=== PATIENT | male | born 1945 | race African-American/Black ===

== ENCOUNTER 2020-08-07 18:49 | Inpatient (IN) | payer MEDICARE ==
[2020-08-07 19:25] LABS: #Eosinphils 0.3 10x3/uL (0.0-0.5); #Monocytes 0.6 10x3/uL (0.0-1.1); #Neutrophils 7.3 10x3/uL (1.5-8.4); %Basophils 0.4 % (0.0-2.0); %Lymphocytes 8.8 % (18.0-47.0); %Neutrophils 79.6 % (40.0-75.0); Hemoglobin 13.4 g/dL (13.5-17.5); Mean Corpuscular HGB CONC 32.1 g/dL (32.0-36.0); Mean Corpuscular Hemoglobin 28.1 pg (27.0-33.0); Mean Corpuscular Volume 87.6 fl (81.2-95.1); Platelet Count 200 10x3/uL (150-450); Red Blood Cell (RBC) Count 4.77 10x6/uL (4.32-5.72); White Blood Cell (WBC) Count 9.1 10x3/uL (3.5-10.5)
[2020-08-07 19:25] LABS: Actual Bicarbonate (HCO3v) 28 mEq/L (22-28); Base Excess 1.2 mEq/L (-2.0 to +3.0); Calcium, Ionized (venous) 1.16 mmol/L (1.16-1.32); Chloride (VBG) 101 mmol/L (98-106); Hemoglobin (Hb) 13.7 g/dL (12.6-17.4); Potassium (VBG) 4.47 mmol/L (3.70-5.30); Puncture Site Other Site; Sodium 137.8 mmol/L (133-146); pH (venous) 7.36 (7.32-7.43)
[2020-08-07] MEDS ORDERED: Labetalol HCl 100 MG/20 ML VIAL ONE (19:25)
[2020-08-07 19:33] LABS: ALT (SGPT) 22 U/L (8-55); AST (SGOT) 27 U/L (5-34); Albumin 4.3 g/dL (3.4-4.8); Alkaline Phosphatase 104 U/L (40-110); Anion Gap 19 mmol/L (10-20); BUN (Urea Nitrogen) 33 mg/dL (8.4-25.7); Bilirubin, Total 0.2 mg/dL (0.2-1.2); Calc. Creatinine Clearance 0 mL/min (70-130); Calcium 9.7 mg/dL (7.8-10.44); Carbon Dioxide 23 mmol/L (23-31); Chloride 101 mmol/L (98-107); Globulin 3.7 g/dL (2.4-3.5); Glucose 330 mg/dL (83-110); Lipase 72 U/L (8-78); Potassium 4.9 mmol/L (3.5-5.1); Sodium 138 mmol/L (136-145)
[2020-08-07 20:03] LABS: Platelet Morphology Comment Appears Adequate
[2020-08-07] MEDS ORDERED: niCARdipine 25 MG/10 ML VIAL ONE (21:21)
[2020-08-07] MEDS ORDERED: Senokot S 8.6-50 MG TAB PO PRN (22:03)
[2020-08-07] MEDS ORDERED: niCARdipine 25 MG in Sodium Chloride 0.9% 250 ML 250 ML IVPB SCH (22:15)
[2020-08-07] MEDS ORDERED: Furosemide 100 MG/10 ML VIAL SLOW IVP SCH (22:30)
[2020-08-07] MEDS ORDERED: methylPREDNISolone Sod Succ 40 MG VIAL IVP SCH (22:30)
[2020-08-07] MEDS ORDERED: methylPREDNISolone Acetate 40 mg/ml Vial ONE (22:39)
[2020-08-07] MEDS ORDERED: Furosemide 40 MG/4 ML VIAL ONE (22:39)
[2020-08-07] MEDS ORDERED: Metoprolol Tartrate 5 MG/5 ML VIAL ONE (22:40)
[2020-08-07] MEDS ORDERED: Nitroglycerin 2% Ointment 1 INCH/1 GM Packet ONE (22:40)
[2020-08-07 22:42] LABS: Troponin I 0.029 ng/mL (< 0.028)
[2020-08-07] MEDS ORDERED: methylPREDNISolone Sod Succ 40 MG VIAL ONE (22:42)
[2020-08-07] MEDS ORDERED: Lantus 1000 UNITS/10 ML VIAL SC SCH (22:45)
[2020-08-07] MEDS ORDERED: Lantus 1000 UNITS/10 ML VIAL ONE ×2 (23:01→23:02)
[2020-08-08] MEDS: Nitroglycerin 2% Ointment 1 INCH/1 GM Packet TOP SCH ×2 (00:09→06:08)
[2020-08-08] MEDS: Metoprolol Tartrate 5 MG/5 ML VIAL IVP SCH ×3 (00:30→06:42)
[2020-08-08 04:03] LABS: #Monocytes 0.2 10x3/uL (0.0-1.1); #Neutrophils 10.2 10x3/uL (1.5-8.4); %Basophils 0.3 % (0.0-2.0); %Eosinophils 0.1 % (0.0-6.0); %Lymphocytes 3.8 % (18.0-47.0); %Monocytes 1.7 % (0.0-10.0); %Neutrophils 93.1 % (40.0-75.0); Mean Corpuscular HGB CONC 32.3 g/dL (32.0-36.0); Mean Corpuscular Hemoglobin 28.4 pg (27.0-33.0); Mean Platelet Volume 11.2 fl (7.4-10.4); Platelet Count 225 10x3/uL (150-450); RBC Distribution Width 14.8 % (11.5-14.5); Red Blood Cell (RBC) Count 4.58 10x6/uL (4.32-5.72); White Blood Cell (WBC) Count 10.9 10x3/uL (3.5-10.5)
[2020-08-08 04:22] LABS: Anion Gap 15 mmol/L (10-20); BUN (Urea Nitrogen) 32 mg/dL (8.4-25.7); Calc. Creatinine Clearance 0 mL/min (70-130); Calcium 9.8 mg/dL (7.8-10.44); Carbon Dioxide 26 mmol/L (23-31); Chloride 102 mmol/L (98-107); Glucose 214 mg/dL (83-110); Potassium 4.6 mmol/L (3.5-5.1); Sodium 138 mmol/L (136-145)
[2020-08-08] MEDS ORDERED: Nitroglycerin 2% Ointment 1 INCH/1 GM Packet ONE (05:47)
[2020-08-08] MEDS ORDERED: Metoprolol Tartrate 5 MG/5 ML VIAL ONE (05:48)
[2020-08-08] MEDS ORDERED: Budesonide 0.5 MG/2 ML NEB ONE (06:52)
[2020-08-08] MEDS: Arformoterol 15 MCG/2 ML NEB NEB SCH (06:54)
[2020-08-08] MEDS: Budesonide 0.5 MG/2 ML NEB NEB SCH (06:55)
[2020-08-08 08:04] VITALS: BMI 30.8
[2020-08-08] MEDS ORDERED: Metoprolol Tartrate 25 MG TAB PO SCH (09:00)
[2020-08-08] MEDS ORDERED: hydrALAZINE 25 MG TAB PO SCH (09:00)
[2020-08-08] MEDS: methylPREDNISolone Sod Succ 40 MG VIAL IVP SCH ×2 (09:02→21:43)
[2020-08-08] MEDS: Aspirin 81 mg Enteric Coated Tablet PO SCH (09:03)
[2020-08-08] MEDS: TICAGRELOR 90 MG TABLET PO SCH ×2 (09:03→21:46)
[2020-08-08] MEDS: hydrALAZINE 25 MG TAB PO SCH ×4 (09:03→21:44)
[2020-08-08] MEDS: Enoxaparin Sodium 40 MG/0.4 ML SYRINGE SC SCH (09:03)
[2020-08-08] MEDS: Doxycycline 100 MG CAP PO SCH ×2 (09:08→21:43)
[2020-08-08] MEDS ORDERED: Dextrose 50% Abboject 50 ML SYRINGE SLOW IVP PRN (16:06)
[2020-08-08] MEDS ORDERED: Dextrose 5% in Water 1,000 ML IV PRN (16:06)
[2020-08-08 16:42] LABS: SARS-CoV-2 PCR by NAA Not Detected (NotDetected)
[2020-08-08] MEDS: HumaLOG 300 UNITS/3 ML VIAL SC PRN ×2 (17:32→21:46)
[2020-08-08] MEDS: Montelukast Sodium 10 mg Tablet PO SCH (21:43)
[2020-08-08] MEDS: Atorvastatin Calcium 10 MG TAB PO SCH (21:44)
[2020-08-08] MEDS: Metoprolol Tartrate 50 MG TAB PO SCH (21:44)
[2020-08-08] MEDS: Lantus 1000 UNITS/10 ML VIAL SC SCH (21:45)
[2020-08-09] MEDS: Budesonide 0.5 MG/2 ML NEB NEB SCH ×3 (02:04→20:27)
[2020-08-09] MEDS: Arformoterol 15 MCG/2 ML NEB NEB SCH ×3 (02:04→20:23)
[2020-08-09] MEDS: HumaLOG 300 UNITS/3 ML VIAL SC PRN ×4 (05:21→20:36)
[2020-08-09] MEDS: Metoprolol Tartrate 50 MG TAB PO SCH ×2 (06:01→08:05)
[2020-08-09 06:11] LABS: #Monocytes 0.3 10x3/uL (0.0-1.1); #Neutrophils 16.3 10x3/uL (1.5-8.4); %Basophils 0.2 % (0.0-2.0); %Lymphocytes 3.2 % (18.0-47.0); %Monocytes 1.6 % (0.0-10.0); %Neutrophils 94.1 % (40.0-75.0); Hemoglobin 12.7 g/dL (13.5-17.5); Mean Corpuscular HGB CONC 32.8 g/dL (32.0-36.0); Mean Corpuscular Hemoglobin 28.6 pg (27.0-33.0); Mean Corpuscular Volume 87.2 fl (81.2-95.1); Mean Platelet Volume 11.4 fl (7.4-10.4); Platelet Count 240 10x3/uL (150-450); RBC Distribution Width 14.9 % (11.5-14.5); Red Blood Cell (RBC) Count 4.44 10x6/uL (4.32-5.72); White Blood Cell (WBC) Count 17.3 10x3/uL (3.5-10.5)
[2020-08-09 06:16] LABS: Anion Gap 14 mmol/L (10-20); BUN (Urea Nitrogen) 51 mg/dL (8.4-25.7); Calc. Creatinine Clearance 43 mL/min (70-130); Calcium 9.7 mg/dL (7.8-10.44); Carbon Dioxide 28 mmol/L (23-31); Chloride 103 mmol/L (98-107); Glucose 230 mg/dL (83-110); Magnesium 2.4 mg/dL (1.6-2.6); Potassium 4.6 mmol/L (3.5-5.1); Sodium 140 mmol/L (136-145)
[2020-08-09] MEDS: TICAGRELOR 90 MG TABLET PO SCH ×2 (08:05→20:36)
[2020-08-09] MEDS: Enoxaparin Sodium 40 MG/0.4 ML SYRINGE SC SCH (08:05)
[2020-08-09] MEDS: Aspirin 81 mg Enteric Coated Tablet PO SCH (08:05)
[2020-08-09] MEDS: hydrALAZINE 25 MG TAB PO SCH ×4 (08:05→20:32)
[2020-08-09] MEDS: Montelukast Sodium 10 mg Tablet PO SCH (08:05)
[2020-08-09] MEDS: methylPREDNISolone Sod Succ 40 MG VIAL IVP SCH (08:06)
[2020-08-09] MEDS ORDERED: Lantus 1000 UNITS/10 ML VIAL SC SCH (09:00)
[2020-08-09] MEDS ORDERED: methylPREDNISolone Sod Succ 40 MG VIAL IVP SCH (09:00)
[2020-08-09] MEDS ORDERED: Bumetanide 1 MG TAB PO SCH (09:00)
[2020-08-09] MEDS: Doxycycline 100 MG CAP PO SCH ×2 (09:40→20:31)
[2020-08-09] MEDS: Lantus 1000 UNITS/10 ML VIAL SC SCH (20:30)
[2020-08-09] MEDS: Atorvastatin Calcium 10 MG TAB PO SCH (20:35)
[2020-08-10] MEDS: HumaLOG 300 UNITS/3 ML VIAL SC PRN ×3 (00:13→21:49)
[2020-08-10 07:11] LABS: #Basophils 0.1 10x3/uL (0.0-0.2); #Monocytes 1.1 10x3/uL (0.0-1.1); #Neutrophils 11.9 10x3/uL (1.5-8.4); %Basophils 0.3 % (0.0-2.0); %Eosinophils 0.2 % (0.0-6.0); %Lymphocytes 7.3 % (18.0-47.0); %Monocytes 7.7 % (0.0-10.0); %Neutrophils 83.2 % (40.0-75.0); Hemoglobin 13.3 g/dL (13.5-17.5); Mean Corpuscular HGB CONC 32.4 g/dL (32.0-36.0); Mean Corpuscular Hemoglobin 28.5 pg (27.0-33.0); Mean Corpuscular Volume 87.8 fl (81.2-95.1); Mean Platelet Volume 11.1 fl (7.4-10.4); Platelet Count 232 10x3/uL (150-450); RBC Distribution Width 14.6 % (11.5-14.5); Red Blood Cell (RBC) Count 4.67 10x6/uL (4.32-5.72); White Blood Cell (WBC) Count 14.4 10x3/uL (3.5-10.5)
[2020-08-10 07:32] LABS: Anion Gap 15 mmol/L (10-20); BUN (Urea Nitrogen) 55 mg/dL (8.4-25.7); Calc. Creatinine Clearance 47 mL/min (70-130); Calcium 9.4 mg/dL (7.8-10.44); Carbon Dioxide 26 mmol/L (23-31); Chloride 102 mmol/L (98-107); Glucose 88 mg/dL (83-110); Potassium 3.9 mmol/L (3.5-5.1); Sodium 139 mmol/L (136-145)
[2020-08-10] MEDS: Budesonide 0.5 MG/2 ML NEB NEB SCH ×2 (07:41→19:10)
[2020-08-10] MEDS: Arformoterol 15 MCG/2 ML NEB NEB SCH ×2 (07:41→19:10)
[2020-08-10] MEDS ORDERED: Bumetanide 1 MG TAB PO SCH (09:00)
[2020-08-10] MEDS: Doxycycline 100 MG CAP PO SCH ×2 (09:02→21:49)
[2020-08-10] MEDS: Aspirin 81 mg Enteric Coated Tablet PO SCH (09:02)
[2020-08-10] MEDS: Metoprolol Tartrate 50 MG TAB PO SCH ×2 (09:02→21:52)
[2020-08-10] MEDS: predniSONE 20 MG TAB PO SCH (09:03)
[2020-08-10] MEDS: TICAGRELOR 90 MG TABLET PO SCH ×2 (09:03→21:49)
[2020-08-10] MEDS: hydrALAZINE 25 MG TAB PO SCH ×3 (09:03→21:51)
[2020-08-10] MEDS: Lantus 1000 UNITS/10 ML VIAL SC SCH ×3 (09:04→21:50)
[2020-08-10] MEDS: Enoxaparin Sodium 40 MG/0.4 ML SYRINGE SC SCH (09:04)
[2020-08-10] MEDS ORDERED: diphenhydrAMINE 25 MG CAP PO PRN (10:35)
[2020-08-10] MEDS ORDERED: Metoprolol Tartrate 25 MG TAB PO SCH (14:45)
[2020-08-10] MEDS: Bumetanide 1 MG TAB PO SCH (16:51)
[2020-08-10] MEDS: Atorvastatin Calcium 10 MG TAB PO SCH (21:49)
[2020-08-10] MEDS: Montelukast Sodium 10 mg Tablet PO SCH (21:52)
[2020-08-11] MEDS: Budesonide 0.5 MG/2 ML NEB NEB SCH ×2 (07:24→19:13)
[2020-08-11] MEDS: Arformoterol 15 MCG/2 ML NEB NEB SCH ×2 (07:35→19:13)
[2020-08-11] MEDS ORDERED: Amlodipine 5 MG TAB PO SCH (09:00)
[2020-08-11] MEDS: Aspirin 81 mg Enteric Coated Tablet PO SCH (10:08)
[2020-08-11] MEDS: Enoxaparin Sodium 40 MG/0.4 ML SYRINGE SC SCH (10:08)
[2020-08-11] MEDS: Bumetanide 1 MG TAB PO SCH ×2 (10:08→17:25)
[2020-08-11] MEDS: predniSONE 20 MG TAB PO SCH (10:08)
[2020-08-11] MEDS: Metoprolol Tartrate 50 MG TAB PO SCH (10:09)
[2020-08-11] MEDS: TICAGRELOR 90 MG TABLET PO SCH (10:09)
[2020-08-11] MEDS: hydrALAZINE 25 MG TAB PO SCH ×2 (10:09→14:37)
[2020-08-11] MEDS: Lantus 1000 UNITS/10 ML VIAL SC SCH (10:11)
[2020-08-11] MEDS: HumaLOG 300 UNITS/3 ML VIAL SC PRN ×3 (10:43→17:25)
[2020-08-11] MEDS: Doxycycline 100 MG CAP PO SCH (10:43)
[2020-08-11 17:18] VITALS: BP 153/84; TEMP 98.2
== END 2020-08-11 19:12 | disposition home or self-care (01) | DRG 304 ==
LOC: CSHERS 18:49 → CSHERHOLD 22:02 → CSHTELE 08-08 06:38
PROVIDERS: ADMIT Emergency Medicine; ATTEND Internal Medicine
DX: I16.0 Hypertensive urgency (principal); J96.21 Acute and chronic respiratory failure with hypoxia; I50.31 Acute diastolic (congestive) heart failure; J44.1 Chronic obstructive pulmonary disease with (acute) exacerbation; I13.0 Hypertensive heart and chronic kidney disease with heart failure and stage 1 through stage 4 chronic kidney disease, or unspecified chronic kidney disease; Z20.822 Contact with and (suspected) exposure to COVID-19; Z99.81 Dependence on supplemental oxygen; I25.10 Atherosclerotic heart disease of native coronary artery without angina pectoris; G47.33 Obstructive sleep apnea (adult) (pediatric); E11.22 Type 2 diabetes mellitus with diabetic chronic kidney disease; N18.32 Chronic kidney disease, stage 3b; Z95.5 Presence of coronary angioplasty implant and graft; Z90.49 Acquired absence of other specified parts of digestive tract; Z87.891 Personal history of nicotine dependence; Z79.82 Long term (current) use of aspirin; Z79.899 Other long term (current) drug therapy; E11.65 Type 2 diabetes mellitus with hyperglycemia; T38.0X5A Adverse effect of glucocorticoids and synthetic analogues, initial encounter
CPT/HCPCS: 36415; 36416; 71045; 80048; 80053; 82805; 83690; 83735; 83880; 84484; 85025; 87635; 93005; 93010; 94640; 94660; 94760; 96365; 96375; J1650; J1815; J1940; J2920; J7512; J7620; J7626; U0003; U0005

== ENCOUNTER 2021-01-16 17:32 | Emergency (ER) | payer MEDICARE ==
[2021-01-16 18:19] LABS: #Basophils 0.1 10x3/uL (0.0-0.2); #Eosinphils 0.3 10x3/uL (0.0-0.5); #Monocytes 0.5 10x3/uL (0.0-1.1); #Neutrophils 6.9 10x3/uL (1.5-8.4); %Basophils 0.6 % (0.0-2.0); %Eosinophils 2.9 % (0.0-6.0); %Monocytes 5.9 % (0.0-10.0); %Neutrophils 77.7 % (40.0-75.0); Hemoglobin 12.9 g/dL (13.5-17.5); Mean Corpuscular HGB CONC 31.5 g/dL (32.0-36.0); Mean Corpuscular Hemoglobin 27.8 pg (27.0-33.0); Mean Corpuscular Volume 88.1 fl (81.2-95.1); Mean Platelet Volume 11.1 fl (7.4-10.4); Platelet Count 174 10x3/uL (150-450); RBC Distribution Width 14.3 % (11.5-14.5); Red Blood Cell (RBC) Count 4.64 10x6/uL (4.32-5.72); White Blood Cell (WBC) Count 8.9 10x3/uL (3.5-10.5)
[2021-01-16 18:36] LABS: ALT (SGPT) 13 U/L (8-55); AST (SGOT) 17 U/L (5-34); Alkaline Phosphatase 80 U/L (40-110); Anion Gap 15 mmol/L (10-20); BUN (Urea Nitrogen) 33 mg/dL (8.4-25.7); Bilirubin, Total 0.5 mg/dL (0.2-1.2); Calc. Creatinine Clearance 0 mL/min (70-130); Carbon Dioxide 25 mmol/L (23-31); Chloride 105 mmol/L (98-107); Globulin 3.1 g/dL (2.4-3.5); Glucose 106 mg/dL (83-110); Potassium 3.7 mmol/L (3.5-5.1); Protein, Total 7.1 g/dL (5.8-8.1); Sodium 141 mmol/L (136-145)
[2021-01-16] MEDS ORDERED: Labetalol HCl 100 MG/20 ML VIAL ONE (18:40)
== END 2021-01-16 20:40 | disposition home or self-care (01) ==
LOC: CSHERS 17:32
DX: I11.0 Hypertensive heart disease with heart failure (principal); I50.9 Heart failure, unspecified; E11.9 Type 2 diabetes mellitus without complications; J44.9 Chronic obstructive pulmonary disease, unspecified; I25.2 Old myocardial infarction; I25.10 Atherosclerotic heart disease of native coronary artery without angina pectoris; Z87.891 Personal history of nicotine dependence
CPT/HCPCS: 36415; 71045; 80053; 84484; 85025; 93005; 93010; 96374

== ENCOUNTER 2021-01-19 16:59 | Inpatient (IN) | payer MEDICARE ==
[2021-01-19 17:39] LABS: #Basophils 0.1 10x3/uL (0.0-0.2); #Eosinphils 0.3 10x3/uL (0.0-0.5); #Monocytes 0.6 10x3/uL (0.0-1.1); #Neutrophils 7.3 10x3/uL (1.5-8.4); %Basophils 0.5 % (0.0-2.0); %Eosinophils 3.2 % (0.0-6.0); %Lymphocytes 12.8 % (18.0-47.0); %Monocytes 6.3 % (0.0-10.0); %Neutrophils 76.5 % (40.0-75.0); Hemoglobin 13.1 g/dL (13.5-17.5); Mean Corpuscular Hemoglobin 28.1 pg (27.0-33.0); Mean Corpuscular Volume 87.8 fl (81.2-95.1); Mean Platelet Volume 12.1 fl (7.4-10.4); Platelet Count 198 10x3/uL (150-450); RBC Distribution Width 14.5 % (11.5-14.5); Red Blood Cell (RBC) Count 4.67 10x6/uL (4.32-5.72); White Blood Cell (WBC) Count 9.5 10x3/uL (3.5-10.5)
[2021-01-19] MEDS ORDERED: Nitroglycerin 2% Ointment 1 INCH/1 GM Packet ONE (17:42)
[2021-01-19] MEDS ORDERED: Furosemide 40 MG/4 ML VIAL ONE (17:42)
[2021-01-19 17:51] LABS: ALT (SGPT) 13 U/L (8-55); AST (SGOT) 20 U/L (5-34); Albumin 3.9 g/dL (3.4-4.8); Alkaline Phosphatase 86 U/L (40-110); Anion Gap 15 mmol/L (10-20); BUN (Urea Nitrogen) 36 mg/dL (8.4-25.7); Bilirubin, Total 0.4 mg/dL (0.2-1.2); Calc. Creatinine Clearance 0 mL/min (70-130); Calcium 9.1 mg/dL (7.8-10.44); Carbon Dioxide 22 mmol/L (23-31); Chloride 106 mmol/L (98-107); Glucose 129 mg/dL (83-110); Potassium 3.9 mmol/L (3.5-5.1); Protein, Total 6.9 g/dL (5.8-8.1); Sodium 139 mmol/L (136-145)
[2021-01-19] MEDS ORDERED: methylPREDNISolone Sod Succ/PF 125 MG/2 ML VIAL ONE (18:14)
[2021-01-19] MEDS ORDERED: Aspirin 325 MG TAB ONE (18:15)
[2021-01-19] MEDS ORDERED: Magnesium 2 GM/50 ML BAG (IN WATER) ONE (18:15)
[2021-01-19] MEDS ORDERED: Ventolin HFA Inhaler 60 PUFF INHALER ONE (18:36)
[2021-01-19] MEDS ORDERED: Nitroglycerin 50 MG/250 ML BOT 250 ML ONE (20:13)
[2021-01-19 20:24] LABS: SARS-CoV-2 NAA Rapid Test Not Detected (NotDetected)
[2021-01-19] MEDS ORDERED: niCARdipine 20MG In NaCl 20 MG/200 ML BAG IVPB SCH (21:00)
[2021-01-19] MEDS ORDERED: Metoprolol Tartrate 5 MG/5 ML VIAL IVP PRN (21:08)
[2021-01-19 21:50] LABS: Magnesium 2.5 mg/dL (1.6-2.6)
[2021-01-19 21:57] LABS: Troponin I 0.028 ng/mL (< 0.028)
[2021-01-19] MEDS ORDERED: Furosemide 100 MG/10 ML VIAL SLOW IVP SCH (22:00)
[2021-01-19] MEDS: Nitroglycerin 2% Ointment 1 INCH/1 GM Packet TOP SCH (23:08)
[2021-01-20 01:21] LABS: Troponin I 0.018 ng/mL (< 0.028)
[2021-01-20 05:28] LABS: Anion Gap 17 mmol/L (10-20); BUN (Urea Nitrogen) 38 mg/dL (8.4-25.7); Calc. Creatinine Clearance 51 mL/min (70-130); Calcium 9.2 mg/dL (7.8-10.44); Carbon Dioxide 24 mmol/L (23-31); Cardiac Risk 3.7 (Less than 4.5); Chloride 105 mmol/L (98-107); Cholesterol 156 mg/dl (< 200 Desired); Glucose 110 mg/dL (83-110); HDL Cholesterol 42 mg/dL (>60 Neg Risk); LDL Cholesterol, Calculated 104 mg/dL; Potassium 3.9 mmol/L (3.5-5.1); Sodium 142 mmol/L (136-145); Triglycerides 51 mg/dL (Less than 150)
[2021-01-20 05:38] LABS: #Monocytes 0.1 10x3/uL (0.0-1.1); #Neutrophils 8.5 10x3/uL (1.5-8.4); %Basophils 0.2 % (0.0-2.0); %Lymphocytes 5.1 % (18.0-47.0); %Neutrophils 92.9 % (40.0-75.0); Hemoglobin 12.9 g/dL (13.5-17.5); Mean Corpuscular HGB CONC 32.7 g/dL (32.0-36.0); Mean Corpuscular Volume 85.7 fl (81.2-95.1); Mean Platelet Volume 11.7 fl (7.4-10.4); Platelet Count 208 10x3/uL (150-450); RBC Distribution Width 14.5 % (11.5-14.5); White Blood Cell (WBC) Count 9.1 10x3/uL (3.5-10.5)
[2021-01-20] MEDS ORDERED: Furosemide 100 MG/10 ML VIAL SLOW IVP SCH (06:00)
[2021-01-20] MEDS: Nitroglycerin 2% Ointment 1 INCH/1 GM Packet TOP SCH ×3 (06:05→21:18)
[2021-01-20] MEDS: Budesonide 0.5 MG/2 ML NEB NEB SCH ×2 (06:20→19:10)
[2021-01-20] MEDS: Arformoterol 15 MCG/2 ML NEB NEB SCH ×2 (06:20→19:10)
[2021-01-20] MEDS ORDERED: Nitroglycerin 50 MG/250 ML BOT 250 ML IVPB SCH (06:45)
[2021-01-20] MEDS: Enoxaparin Sodium 40 MG/0.4 ML SYRINGE SC SCH (08:28)
[2021-01-20] MEDS: Pantoprazole 40 MG VIAL IVP SCH (08:28)
[2021-01-20] MEDS: Lantus 1000 UNITS/10 ML VIAL SC SCH (08:35)
[2021-01-20] MEDS ORDERED: Aspirin 81 mg Enteric Coated Tablet PO SCH (09:00)
[2021-01-20] MEDS ORDERED: Amlodipine 10 MG TAB PO SCH (11:00)
[2021-01-20] MEDS: hydrALAZINE 25 MG TAB PO SCH ×2 (14:53→21:18)
[2021-01-20] MEDS: Carvedilol 6.25 MG TAB PO SCH (17:47)
[2021-01-20] MEDS ORDERED: Metoprolol Tartrate 50 MG TAB PO SCH (21:00)
[2021-01-21] MEDS: Arformoterol 15 MCG/2 ML NEB NEB SCH ×2 (06:35→18:59)
[2021-01-21] MEDS: Budesonide 0.5 MG/2 ML NEB NEB SCH ×2 (06:45→18:59)
[2021-01-21] MEDS: Nitroglycerin 2% Ointment 1 INCH/1 GM Packet TOP SCH ×3 (06:46→22:31)
[2021-01-21] MEDS ORDERED: FLU VACC QS2021-22(65YR UP)/PF 240 MCG/0.7 ML SYRINGE IM ONE (09:00)
[2021-01-21] MEDS: hydrALAZINE 25 MG TAB PO SCH ×3 (09:30→22:31)
[2021-01-21] MEDS: Carvedilol 6.25 MG TAB PO SCH ×2 (09:30→17:22)
[2021-01-21] MEDS: Aspirin 81 mg Enteric Coated Tablet PO SCH (09:30)
[2021-01-21] MEDS: Enoxaparin Sodium 40 MG/0.4 ML SYRINGE SC SCH (09:31)
[2021-01-21] MEDS: Pantoprazole 40 MG VIAL IVP SCH (09:31)
[2021-01-21] MEDS: Amlodipine 10 MG TAB PO SCH (09:31)
[2021-01-21] MEDS: Lantus 1000 UNITS/10 ML VIAL SC SCH (09:37)
[2021-01-21 10:34] LABS: #Basophils 0.1 10x3/uL (0.0-0.2); #Eosinphils 0.1 10x3/uL (0.0-0.5); #Monocytes 0.6 10x3/uL (0.0-1.1); #Neutrophils 7.2 10x3/uL (1.5-8.4); %Basophils 0.6 % (0.0-2.0); %Lymphocytes 10.6 % (18.0-47.0); %Monocytes 6.3 % (0.0-10.0); %Neutrophils 80.8 % (40.0-75.0); Hemoglobin 13.1 g/dL (13.5-17.5); Mean Corpuscular HGB CONC 31.6 g/dL (32.0-36.0); Mean Corpuscular Hemoglobin 28.1 pg (27.0-33.0); Mean Corpuscular Volume 88.9 fl (81.2-95.1); Mean Platelet Volume 11.9 fl (7.4-10.4); Platelet Count 211 10x3/uL (150-450); RBC Distribution Width 14.4 % (11.5-14.5); Red Blood Cell (RBC) Count 4.67 10x6/uL (4.32-5.72); White Blood Cell (WBC) Count 8.9 10x3/uL (3.5-10.5)
[2021-01-21 10:49] LABS: Anion Gap 12 mmol/L (10-20); BUN (Urea Nitrogen) 41 mg/dL (8.4-25.7); Calc. Creatinine Clearance 45 mL/min (70-130); Calcium 8.4 mg/dL (7.8-10.44); Carbon Dioxide 28 mmol/L (23-31); Chloride 101 mmol/L (98-107); Glucose 265 mg/dL (83-110); Potassium 3.9 mmol/L (3.5-5.1); Sodium 137 mmol/L (136-145)
[2021-01-21] MEDS ORDERED: Milk Of Magnesia 30 ML UDCUP PO SCH (20:30)
[2021-01-21] MEDS ORDERED: Fleet Enema 133 ML BOT PR SCH (20:30)
[2021-01-22] MEDS: Nitroglycerin 2% Ointment 1 INCH/1 GM Packet TOP SCH ×3 (06:16→21:17)
[2021-01-22] MEDS: Arformoterol 15 MCG/2 ML NEB NEB SCH ×2 (06:35→18:35)
[2021-01-22] MEDS: Budesonide 0.5 MG/2 ML NEB NEB SCH ×2 (06:45→18:45)
[2021-01-22] MEDS: Amlodipine 10 MG TAB PO SCH (08:49)
[2021-01-22] MEDS: Carvedilol 6.25 MG TAB PO SCH ×2 (08:49→16:32)
[2021-01-22] MEDS: Aspirin 81 mg Enteric Coated Tablet PO SCH (08:49)
[2021-01-22] MEDS: Docusate 100 MG CAP PO SCH ×2 (08:49→21:15)
[2021-01-22] MEDS: Enoxaparin Sodium 40 MG/0.4 ML SYRINGE SC SCH (08:49)
[2021-01-22] MEDS: hydrALAZINE 25 MG TAB PO SCH ×3 (08:49→21:15)
[2021-01-22] MEDS: Lantus 1000 UNITS/10 ML VIAL SC SCH (08:50)
[2021-01-22 09:52] LABS: Anion Gap 12 mmol/L (10-20); BUN (Urea Nitrogen) 39 mg/dL (8.4-25.7); Calc. Creatinine Clearance 49 mL/min (70-130); Calcium 8.6 mg/dL (7.8-10.44); Carbon Dioxide 27 mmol/L (23-31); Chloride 103 mmol/L (98-107); Glucose 173 mg/dL (83-110); Potassium 3.9 mmol/L (3.5-5.1); Sodium 138 mmol/L (136-145)
[2021-01-22 12:31] LABS: Base Excess (BEa) 3.4 mEq/L (-2.0 to +3.0); CO2 Tension 42.1 mmHg (35.0-45.0); Calcium, Ionized (arterial) 1.15 mmol/L (1.12-1.30); Carboxyhemoglobin (COHb) 0.6 gm% (0.0-3.0); Hemoglobin (Hb) 13.5 g/dL (14.0-18.0); Potassium - ABG Lab 3.7 mmol/L (3.70-5.30); Puncture Site RRA; pH, Arterial 7.44 (7.35-7.45)
[2021-01-22 12:35] LABS: ALV-art Gradient 593.375 mmHg (0-20)
[2021-01-22] MEDS ORDERED: Nitroglycerin 0.4 MG TAB (25 Tab Bottle) SL PRN (13:29)
[2021-01-22 14:14] LABS: Cardiac Risk 5.1 (Less than 4.5)
[2021-01-22 15:29] LABS: CKMB 3.6 ng/mL (0-6.6)
[2021-01-22] MEDS ORDERED: Acetaminophen 325 MG TAB PO SCH (21:15)
[2021-01-23] MEDS: Nitroglycerin 2% Ointment 1 INCH/1 GM Packet TOP SCH (06:02)
[2021-01-23] MEDS: Arformoterol 15 MCG/2 ML NEB NEB SCH ×2 (06:30→19:16)
[2021-01-23] MEDS: Budesonide 0.5 MG/2 ML NEB NEB SCH ×2 (06:40→19:10)
[2021-01-23 08:38] LABS: Magnesium 2.1 mg/dL (1.6-2.6); Phosphorus 2.6 mg/dL (2.3-4.7)
[2021-01-23] MEDS ORDERED: Nitroglycerin 0.4 MG TAB (25 Tab Bottle) SL PRN ×2 (08:44→09:42)
[2021-01-23] MEDS: Carvedilol 6.25 MG TAB PO SCH (08:50)
[2021-01-23] MEDS: Amlodipine 10 MG TAB PO SCH (08:50)
[2021-01-23] MEDS: hydrALAZINE 25 MG TAB PO SCH ×3 (08:51→20:27)
[2021-01-23] MEDS: Aspirin 81 mg Enteric Coated Tablet PO SCH (08:52)
[2021-01-23] MEDS: Docusate 100 MG CAP PO SCH ×2 (08:53→20:27)
[2021-01-23] MEDS: Enoxaparin Sodium 40 MG/0.4 ML SYRINGE SC SCH (08:57)
[2021-01-23] MEDS: Lantus 1000 UNITS/10 ML VIAL SC SCH (08:58)
[2021-01-23] MEDS ORDERED: Pantoprazole 40 MG VIAL IVP SCH (09:45)
[2021-01-23] MEDS ORDERED: Carvedilol 6.25 MG TAB PO SCH (09:45)
[2021-01-23] MEDS ORDERED: Sodium Chloride 0.9% (PF) 10 ML VIAL FS PRN (09:45)
[2021-01-23 09:54] LABS: Anion Gap 13 mmol/L (10-20); BUN (Urea Nitrogen) 27 mg/dL (8.4-25.7); Calc. Creatinine Clearance 57 mL/min (70-130); Calcium 8.8 mg/dL (7.8-10.44); Carbon Dioxide 26 mmol/L (23-31); Chloride 103 mmol/L (98-107); Glucose 129 mg/dL (83-110); Potassium 3.7 mmol/L (3.5-5.1); Sodium 138 mmol/L (136-145)
[2021-01-23] MEDS ORDERED: Senokot S 8.6-50 MG TAB PO PRN (11:22)
[2021-01-23] MEDS: Lidocaine 5% Patch TD SCH (11:22)
[2021-01-23] MEDS ORDERED: Bumetanide 1 MG TAB PO SCH (11:45)
[2021-01-23] MEDS ORDERED: Piperacillin/Tazobactam 3.375 GM in Sodium Chloride 0.9% 100 ML IVPB SCH ×2 (15:30→17:45)
[2021-01-23] MEDS: Carvedilol 12.5 MG TAB PO SCH (18:07)
[2021-01-23] MEDS: Mometasone/Formoterol 60 PUFF AER INH SCH (20:20)
[2021-01-23] MEDS: Atorvastatin Calcium 10 MG TAB PO SCH (20:27)
[2021-01-23] MEDS: Brimonidine Tartrate 0.2% Ophth Soln 5 ml Bottle EA EYE SCH (20:28)
[2021-01-23] MEDS: Latanoprost 0.005% Ophth Soln 2.5 ml Bottle EA EYE SCH (20:28)
[2021-01-23] MEDS: diphenhydrAMINE 25 MG CAP PO PRN (21:11)
[2021-01-23] MEDS: Piperacillin/Tazobactam 3.375 GM in Sodium Chloride 0.9% 100 ML IVPB SCH (21:11)
[2021-01-23] MEDS: Transdermal Patch Removal TOP SCH (21:11)
[2021-01-24] MEDS: Piperacillin/Tazobactam 3.375 GM in Sodium Chloride 0.9% 100 ML IVPB SCH ×3 (05:23→21:01)
[2021-01-24] MEDS: Arformoterol 15 MCG/2 ML NEB NEB SCH ×2 (06:30→19:30)
[2021-01-24] MEDS: Budesonide 0.5 MG/2 ML NEB NEB SCH ×2 (06:40→20:06)
[2021-01-24] MEDS: Mometasone/Formoterol 60 PUFF AER INH SCH ×2 (08:05→19:40)
[2021-01-24] MEDS ORDERED: Bumetanide 1 MG TAB PO SCH (09:00)
[2021-01-24] MEDS: Lidocaine 5% Patch TD SCH (09:14)
[2021-01-24] MEDS: Allopurinol 100 MG TAB PO SCH (09:16)
[2021-01-24] MEDS: hydrALAZINE 25 MG TAB PO SCH ×3 (09:16→20:49)
[2021-01-24] MEDS: Amlodipine 10 MG TAB PO SCH (09:16)
[2021-01-24] MEDS: Docusate 100 MG CAP PO SCH ×2 (09:17→20:49)
[2021-01-24] MEDS: Pantoprazole 40 MG VIAL IVP SCH (09:17)
[2021-01-24] MEDS: Aspirin 81 mg Enteric Coated Tablet PO SCH (09:17)
[2021-01-24] MEDS: Enoxaparin Sodium 40 MG/0.4 ML SYRINGE SC SCH (09:18)
[2021-01-24] MEDS: Carvedilol 12.5 MG TAB PO SCH ×2 (09:18→16:31)
[2021-01-24] MEDS: Amitriptyline HCl 10 MG TAB PO SCH (09:18)
[2021-01-24] MEDS: Lantus 1000 UNITS/10 ML VIAL SC SCH (09:24)
[2021-01-24] MEDS: Brimonidine Tartrate 0.2% Ophth Soln 5 ml Bottle EA EYE SCH ×2 (09:25→20:54)
[2021-01-24] MEDS ORDERED: methylPREDNISolone Sod Succ/PF 125 MG/2 ML VIAL IVP SCH (12:00)
[2021-01-24] MEDS: Acetaminophen 500 MG TAB PO SCH ×4 (13:29→20:55)
[2021-01-24] MEDS: Atorvastatin Calcium 10 MG TAB PO SCH (20:49)
[2021-01-24] MEDS: diphenhydrAMINE 25 MG CAP PO PRN (20:49)
[2021-01-24] MEDS: Latanoprost 0.005% Ophth Soln 2.5 ml Bottle EA EYE SCH (20:55)
[2021-01-24] MEDS: Transdermal Patch Removal TOP SCH (20:59)
[2021-01-25] MEDS ORDERED: Dextrose 50% Abboject 50 ML SYRINGE IVP PRN (00:30)
[2021-01-25] MEDS ORDERED: Dextrose 5% in Water 1,000 ML IV PRN (00:30)
[2021-01-25] MEDS: HumaLOG 300 UNITS/3 ML VIAL SC PRN ×4 (00:38→17:33)
[2021-01-25] MEDS: Bumetanide 1 MG/4 ML VIAL IVP SCH ×2 (05:18→17:32)
[2021-01-25] MEDS: methylPREDNISolone Sod Succ 40 MG VIAL IVP SCH ×3 (05:18→22:01)
[2021-01-25] MEDS: Piperacillin/Tazobactam 3.375 GM in Sodium Chloride 0.9% 100 ML IVPB SCH ×3 (05:18→22:01)
[2021-01-25] MEDS: Acetaminophen 500 MG TAB PO SCH ×4 (05:23→22:58)
[2021-01-25] MEDS: Polyethylene Glycol 3350 17 GM Packet PO PRN (05:42)
[2021-01-25 06:01] LABS: #Monocytes 0.2 10x3/uL (0.0-1.1); #Neutrophils 8.2 10x3/uL (1.5-8.4); %Basophils 0.1 % (0.0-2.0); %Lymphocytes 5.3 % (18.0-47.0); %Monocytes 1.9 % (0.0-10.0); %Neutrophils 91.9 % (40.0-75.0); Hemoglobin 13.3 g/dL (13.5-17.5); Mean Corpuscular Volume 87.6 fl (81.2-95.1); Mean Platelet Volume 11.7 fl (7.4-10.4); Platelet Count 212 10x3/uL (150-450); RBC Distribution Width 13.9 % (11.5-14.5); Red Blood Cell (RBC) Count 4.75 10x6/uL (4.32-5.72); White Blood Cell (WBC) Count 8.9 10x3/uL (3.5-10.5)
[2021-01-25] MEDS: Mometasone/Formoterol 60 PUFF AER INH SCH ×2 (06:10→19:35)
[2021-01-25] MEDS: Budesonide 0.5 MG/2 ML NEB NEB SCH ×2 (06:10→19:15)
[2021-01-25] MEDS: Arformoterol 15 MCG/2 ML NEB NEB SCH ×2 (06:10→19:15)
[2021-01-25 06:37] LABS: ALT (SGPT) 13 U/L (8-55); AST (SGOT) 15 U/L (5-34); Albumin 3.7 g/dL (3.4-4.8); Alkaline Phosphatase 84 U/L (40-110); Anion Gap 16 mmol/L (10-20); BUN (Urea Nitrogen) 41 mg/dL (8.4-25.7); Bilirubin, Total 0.7 mg/dL (0.2-1.2); CRP (Inflammatory) 9.55 mg/dL (= or < 0.5); Calc. Creatinine Clearance 36 mL/min (70-130); Calcium 8.8 mg/dL (7.8-10.44); Carbon Dioxide 24 mmol/L (23-31); Chloride 103 mmol/L (98-107); Glucose 224 mg/dL (83-110); Potassium 4.2 mmol/L (3.5-5.1); Protein, Total 6.7 g/dL (5.8-8.1); Sodium 139 mmol/L (136-145)
[2021-01-25] MEDS: Carvedilol 12.5 MG TAB PO SCH ×2 (08:38→17:29)
[2021-01-25] MEDS: Amlodipine 10 MG TAB PO SCH (08:38)
[2021-01-25] MEDS: Aspirin 81 mg Enteric Coated Tablet PO SCH (08:39)
[2021-01-25] MEDS: hydrALAZINE 25 MG TAB PO SCH ×3 (08:39→20:28)
[2021-01-25] MEDS: Pantoprazole 40 MG VIAL IVP SCH (08:39)
[2021-01-25] MEDS: Allopurinol 100 MG TAB PO SCH (08:39)
[2021-01-25] MEDS: Docusate 100 MG CAP PO SCH ×2 (08:39→20:28)
[2021-01-25] MEDS: Enoxaparin Sodium 40 MG/0.4 ML SYRINGE SC SCH (08:39)
[2021-01-25] MEDS: Lidocaine 5% Patch TD SCH (08:39)
[2021-01-25] MEDS: Lantus 1000 UNITS/10 ML VIAL SC SCH ×2 (08:41→20:32)
[2021-01-25] MEDS: Amitriptyline HCl 10 MG TAB PO SCH (08:45)
[2021-01-25] MEDS: Brimonidine Tartrate 0.2% Ophth Soln 5 ml Bottle EA EYE SCH ×2 (08:45→20:30)
[2021-01-25] MEDS ORDERED: Doxycycline 100 MG in Syringe 0 ML IVPB SCH (09:00)
[2021-01-25] MEDS ORDERED: Doxycycline Hyclate 100 MG VIAL ONE (13:19)
[2021-01-25] MEDS: Atorvastatin Calcium 10 MG TAB PO SCH (20:28)
[2021-01-25] MEDS: Latanoprost 0.005% Ophth Soln 2.5 ml Bottle EA EYE SCH (20:30)
[2021-01-25] MEDS: Transdermal Patch Removal TOP SCH (22:02)
[2021-01-26] MEDS: HumaLOG 300 UNITS/3 ML VIAL SC PRN ×5 (00:40→21:41)
[2021-01-26 04:46] LABS: #Monocytes 0.5 10x3/uL (0.0-1.1); #Neutrophils 13.1 10x3/uL (1.5-8.4); %Basophils 0.1 % (0.0-2.0); %Lymphocytes 2.6 % (18.0-47.0); %Monocytes 3.6 % (0.0-10.0); %Neutrophils 93.1 % (40.0-75.0); Hemoglobin 12.4 g/dL (13.5-17.5); Mean Corpuscular HGB CONC 31.8 g/dL (32.0-36.0); Mean Corpuscular Hemoglobin 27.9 pg (27.0-33.0); Mean Corpuscular Volume 87.8 fl (81.2-95.1); Platelet Count 208 10x3/uL (150-450); Red Blood Cell (RBC) Count 4.44 10x6/uL (4.32-5.72)
[2021-01-26 05:05] LABS: Anion Gap 16 mmol/L (10-20); BUN (Urea Nitrogen) 48 mg/dL (8.4-25.7); Calc. Creatinine Clearance 35 mL/min (70-130); Calcium 8.6 mg/dL (7.8-10.44); Carbon Dioxide 25 mmol/L (23-31); Chloride 103 mmol/L (98-107); Glucose 183 mg/dL (83-110); Magnesium 2.1 mg/dL (1.6-2.6); Potassium 4.5 mmol/L (3.5-5.1); Sodium 139 mmol/L (136-145)
[2021-01-26] MEDS: methylPREDNISolone Sod Succ 40 MG VIAL IVP SCH ×3 (05:11→21:42)
[2021-01-26] MEDS: Acetaminophen 500 MG TAB PO SCH ×2 (05:11→11:13)
[2021-01-26] MEDS: Piperacillin/Tazobactam 3.375 GM in Sodium Chloride 0.9% 100 ML IVPB SCH ×3 (05:12→21:32)
[2021-01-26] MEDS: Bumetanide 1 MG/4 ML VIAL IVP SCH (05:12)
[2021-01-26] MEDS: Mometasone/Formoterol 60 PUFF AER INH SCH ×2 (07:10→19:25)
[2021-01-26] MEDS: Arformoterol 15 MCG/2 ML NEB NEB SCH ×2 (07:10→19:00)
[2021-01-26] MEDS: Budesonide 0.5 MG/2 ML NEB NEB SCH ×2 (07:10→19:00)
[2021-01-26] MEDS: Amitriptyline HCl 10 MG TAB PO SCH (09:00)
[2021-01-26] MEDS: Aspirin 81 mg Enteric Coated Tablet PO SCH (09:00)
[2021-01-26] MEDS: Docusate 100 MG CAP PO SCH ×2 (09:00→20:53)
[2021-01-26] MEDS: Allopurinol 100 MG TAB PO SCH (09:00)
[2021-01-26] MEDS: hydrALAZINE 25 MG TAB PO SCH ×3 (09:00→20:52)
[2021-01-26] MEDS: Pantoprazole 40 MG VIAL IVP SCH (09:01)
[2021-01-26] MEDS: Carvedilol 12.5 MG TAB PO SCH ×2 (09:01→16:33)
[2021-01-26] MEDS: Enoxaparin Sodium 30 MG/0.3 ML SYRINGE SC SCH (09:01)
[2021-01-26] MEDS: Amlodipine 10 MG TAB PO SCH (09:01)
[2021-01-26] MEDS: Lantus 1000 UNITS/10 ML VIAL SC SCH ×2 (09:02→21:33)
[2021-01-26] MEDS: Lidocaine 5% Patch TD SCH (09:05)
[2021-01-26] MEDS: Brimonidine Tartrate 0.2% Ophth Soln 5 ml Bottle EA EYE SCH ×2 (09:07→20:54)
[2021-01-26 14:26] LABS: SARS-CoV-2 PCR by NAA Not Detected (NotDetected)
[2021-01-26] MEDS: Latanoprost 0.005% Ophth Soln 2.5 ml Bottle EA EYE SCH (20:52)
[2021-01-26] MEDS: diphenhydrAMINE 25 MG CAP PO PRN (20:52)
[2021-01-26] MEDS: Atorvastatin Calcium 10 MG TAB PO SCH (20:53)
[2021-01-26] MEDS: Transdermal Patch Removal TOP SCH (20:55)
[2021-01-26] MEDS: Polyethylene Glycol 3350 17 GM Packet PO PRN (21:32)
[2021-01-27 04:28] LABS: #Monocytes 0.2 10x3/uL (0.0-1.1); #Neutrophils 11.1 10x3/uL (1.5-8.4); %Basophils 0.1 % (0.0-2.0); %Lymphocytes 2.8 % (18.0-47.0); %Monocytes 1.7 % (0.0-10.0); %Neutrophils 94.7 % (40.0-75.0); Mean Corpuscular HGB CONC 31.9 g/dL (32.0-36.0); Mean Corpuscular Volume 87.5 fl (81.2-95.1); Mean Platelet Volume 12.3 fl (7.4-10.4); Platelet Count 226 10x3/uL (150-450); RBC Distribution Width 13.8 % (11.5-14.5); Red Blood Cell (RBC) Count 4.65 10x6/uL (4.32-5.72); White Blood Cell (WBC) Count 11.8 10x3/uL (3.5-10.5)
[2021-01-27 04:52] LABS: ALT (SGPT) 14 U/L (8-55); AST (SGOT) 12 U/L (5-34); Albumin 3.4 g/dL (3.4-4.8); Alkaline Phosphatase 65 U/L (40-110); Anion Gap 14 mmol/L (10-20); BUN (Urea Nitrogen) 45 mg/dL (8.4-25.7); Bilirubin, Total 0.5 mg/dL (0.2-1.2); Calc. Creatinine Clearance 44 mL/min (70-130); Calcium 8.4 mg/dL (7.8-10.44); Carbon Dioxide 23 mmol/L (23-31); Chloride 105 mmol/L (98-107); Globulin 2.8 g/dL (2.4-3.5); Glucose 152 mg/dL (83-110); Potassium 4.4 mmol/L (3.5-5.1); Protein, Total 6.2 g/dL (5.8-8.1); Sodium 138 mmol/L (136-145)
[2021-01-27] MEDS: methylPREDNISolone Sod Succ 40 MG VIAL IVP SCH ×3 (05:26→21:21)
[2021-01-27] MEDS: Piperacillin/Tazobactam 3.375 GM in Sodium Chloride 0.9% 100 ML IVPB SCH ×3 (05:26→21:28)
[2021-01-27] MEDS: HumaLOG 300 UNITS/3 ML VIAL SC PRN ×3 (05:27→21:29)
[2021-01-27] MEDS ORDERED: Bisacodyl 10 MG SUPP PR SCH (06:15)
[2021-01-27] MEDS: Mometasone/Formoterol 60 PUFF AER INH SCH ×2 (06:20→20:06)
[2021-01-27] MEDS: Budesonide 0.5 MG/2 ML NEB NEB SCH ×2 (06:20→19:20)
[2021-01-27] MEDS: Arformoterol 15 MCG/2 ML NEB NEB SCH ×2 (06:20→19:14)
[2021-01-27] MEDS: Carvedilol 12.5 MG TAB PO SCH ×2 (07:57→16:05)
[2021-01-27] MEDS: Aspirin 81 mg Enteric Coated Tablet PO SCH (07:57)
[2021-01-27] MEDS: Amitriptyline HCl 10 MG TAB PO SCH (07:57)
[2021-01-27] MEDS: hydrALAZINE 25 MG TAB PO SCH ×3 (07:57→21:25)
[2021-01-27] MEDS: Lidocaine 5% Patch TD SCH (07:57)
[2021-01-27] MEDS: Amlodipine 10 MG TAB PO SCH (07:58)
[2021-01-27] MEDS: Allopurinol 100 MG TAB PO SCH (07:58)
[2021-01-27] MEDS: Enoxaparin Sodium 30 MG/0.3 ML SYRINGE SC SCH (07:58)
[2021-01-27] MEDS: Docusate 100 MG CAP PO SCH ×2 (07:58→21:21)
[2021-01-27] MEDS: Brimonidine Tartrate 0.2% Ophth Soln 5 ml Bottle EA EYE SCH ×2 (07:59→21:28)
[2021-01-27] MEDS: Lantus 1000 UNITS/10 ML VIAL SC SCH ×2 (07:59→21:27)
[2021-01-27] MEDS: cloNIDine 0.1mg/24 Hour PATCH TD SCH (09:58)
[2021-01-27] MEDS: cloNIDine 0.1 MG TAB PO SCH ×3 (09:59→21:21)
[2021-01-27 18:53] LABS: Legionella Urinary Ag Negative (Negative); Strep pneumo Urine Ag NEGATIVE (NEGATIVE)
[2021-01-27] MEDS: Atorvastatin Calcium 10 MG TAB PO SCH (21:21)
[2021-01-27] MEDS: diphenhydrAMINE 25 MG CAP PO PRN (21:21)
[2021-01-27] MEDS: Latanoprost 0.005% Ophth Soln 2.5 ml Bottle EA EYE SCH (21:22)
[2021-01-27] MEDS: Transdermal Patch Removal TOP SCH (21:28)
[2021-01-28] MEDS: Piperacillin/Tazobactam 3.375 GM in Sodium Chloride 0.9% 100 ML IVPB SCH ×2 (05:04→13:50)
[2021-01-28] MEDS: methylPREDNISolone Sod Succ 40 MG VIAL IVP SCH ×3 (05:04→21:09)
[2021-01-28] MEDS: Budesonide 0.5 MG/2 ML NEB NEB SCH ×2 (06:45→19:25)
[2021-01-28] MEDS: Mometasone/Formoterol 60 PUFF AER INH SCH ×2 (06:45→20:51)
[2021-01-28] MEDS: Arformoterol 15 MCG/2 ML NEB NEB SCH ×2 (06:45→19:20)
[2021-01-28] MEDS: Amitriptyline HCl 10 MG TAB PO SCH (07:45)
[2021-01-28] MEDS: Lidocaine 5% Patch TD SCH (07:45)
[2021-01-28] MEDS: Aspirin 81 mg Enteric Coated Tablet PO SCH (07:45)
[2021-01-28] MEDS: Enoxaparin Sodium 30 MG/0.3 ML SYRINGE SC SCH (07:45)
[2021-01-28] MEDS: Docusate 100 MG CAP PO SCH ×2 (07:45→21:10)
[2021-01-28] MEDS: Allopurinol 100 MG TAB PO SCH (07:45)
[2021-01-28] MEDS: Amlodipine 10 MG TAB PO SCH (07:45)
[2021-01-28] MEDS: cloNIDine 0.1 MG TAB PO SCH ×3 (07:45→21:10)
[2021-01-28] MEDS: Carvedilol 12.5 MG TAB PO SCH ×2 (07:45→16:33)
[2021-01-28] MEDS: Lantus 1000 UNITS/10 ML VIAL SC SCH ×2 (07:46→21:11)
[2021-01-28] MEDS: Brimonidine Tartrate 0.2% Ophth Soln 5 ml Bottle EA EYE SCH ×2 (07:46→21:11)
[2021-01-28] MEDS: hydrALAZINE 25 MG TAB PO SCH ×3 (07:49→21:09)
[2021-01-28 08:20] LABS: #Monocytes 0.3 10x3/uL (0.0-1.1); #Neutrophils 10.4 10x3/uL (1.5-8.4); %Basophils 0.1 % (0.0-2.0); %Lymphocytes 2.8 % (18.0-47.0); %Monocytes 2.5 % (0.0-10.0); %Neutrophils 93.2 % (40.0-75.0); Hemoglobin 13.6 g/dL (13.5-17.5); Mean Corpuscular HGB CONC 31.8 g/dL (32.0-36.0); Mean Corpuscular Hemoglobin 27.9 pg (27.0-33.0); Mean Corpuscular Volume 87.7 fl (81.2-95.1); Mean Platelet Volume 12.3 fl (7.4-10.4); Platelet Count 204 10x3/uL (150-450); RBC Distribution Width 13.9 % (11.5-14.5); Red Blood Cell (RBC) Count 4.88 10x6/uL (4.32-5.72); White Blood Cell (WBC) Count 11.2 10x3/uL (3.5-10.5)
[2021-01-28 08:33] LABS: ALT (SGPT) 26 U/L (8-55); AST (SGOT) 21 U/L (5-34); Albumin 3.5 g/dL (3.4-4.8); Alkaline Phosphatase 56 U/L (40-110); Anion Gap 15 mmol/L (10-20); BUN (Urea Nitrogen) 39 mg/dL (8.4-25.7); Bilirubin, Total 0.4 mg/dL (0.2-1.2); Calc. Creatinine Clearance 53 mL/min (70-130); Calcium 8.5 mg/dL (7.8-10.44); Carbon Dioxide 23 mmol/L (23-31); Chloride 105 mmol/L (98-107); Glucose 139 mg/dL (83-110); Potassium 5.2 mmol/L (3.5-5.1); Protein, Total 6.5 g/dL (5.8-8.1); Sodium 138 mmol/L (136-145)
[2021-01-28 08:35] LABS: Actual Bicarbonate (HCO3a) 24.6 mEq/L (22-28); Base Excess (BEa) 0.5 mEq/L (-2.0 to +3.0); CO2 Tension 37.9 mmHg (35.0-45.0); Calcium, Ionized (arterial) 1.17 mmol/L (1.12-1.30); Carboxyhemoglobin (COHb) 0.9 gm% (0.0-3.0); Hemoglobin (Hb) 14.2 g/dL (14.0-18.0); O2 Tension (PaO2), arterial 49.9 mmHg (> 70.0); Potassium - ABG Lab 4.3 mmol/L (3.70-5.30); Puncture Site RRA; pH, Arterial 7.43 (7.35-7.45)
[2021-01-28 08:39] LABS: ALV-art Gradient 330.525 mmHg (0-20)
[2021-01-28] MEDS: Acetaminophen 500 MG TAB PO PRN ×2 (11:48→21:17)
[2021-01-28] MEDS: HumaLOG 300 UNITS/3 ML VIAL SC PRN ×2 (11:49→21:20)
[2021-01-28] MEDS ORDERED: Furosemide 20 MG/2 ML VIAL SLOW IVP SCH (17:00)
[2021-01-28 18:34] LABS: Anion Gap 15 mmol/L (10-20); BUN (Urea Nitrogen) 45 mg/dL (8.4-25.7); Calc. Creatinine Clearance 51 mL/min (70-130); Calcium 8.1 mg/dL (7.8-10.44); Carbon Dioxide 19 mmol/L (23-31); Chloride 104 mmol/L (98-107); Glucose 305 mg/dL (83-110); Potassium 4.8 mmol/L (3.5-5.1); Sodium 133 mmol/L (136-145)
[2021-01-28] MEDS: diphenhydrAMINE 25 MG CAP PO PRN (21:09)
[2021-01-28] MEDS: Latanoprost 0.005% Ophth Soln 2.5 ml Bottle EA EYE SCH (21:09)
[2021-01-28] MEDS: Atorvastatin Calcium 10 MG TAB PO SCH (21:10)
[2021-01-28] MEDS: Transdermal Patch Removal TOP SCH (21:11)
[2021-01-29 04:33] LABS: #Monocytes 0.3 10x3/uL (0.0-1.1); #Neutrophils 11.1 10x3/uL (1.5-8.4); %Basophils 0.3 % (0.0-2.0); %Lymphocytes 2.8 % (18.0-47.0); %Monocytes 2.4 % (0.0-10.0); %Neutrophils 92.5 % (40.0-75.0); Hemoglobin 12.3 g/dL (13.5-17.5); Mean Corpuscular HGB CONC 31.7 g/dL (32.0-36.0); Mean Corpuscular Hemoglobin 27.7 pg (27.0-33.0); Mean Corpuscular Volume 87.4 fl (81.2-95.1); Mean Platelet Volume 11.7 fl (7.4-10.4); Platelet Count 207 10x3/uL (150-450); RBC Distribution Width 13.9 % (11.5-14.5); Red Blood Cell (RBC) Count 4.44 10x6/uL (4.32-5.72)
[2021-01-29 04:49] LABS: ALT (SGPT) 29 U/L (8-55); AST (SGOT) 16 U/L (5-34); Albumin 3.2 g/dL (3.4-4.8); Alkaline Phosphatase 56 U/L (40-110); Anion Gap 15 mmol/L (10-20); BUN (Urea Nitrogen) 45 mg/dL (8.4-25.7); Bilirubin, Total 0.4 mg/dL (0.2-1.2); Calc. Creatinine Clearance 51 mL/min (70-130); Calcium 8.4 mg/dL (7.8-10.44); Carbon Dioxide 23 mmol/L (23-31); Chloride 104 mmol/L (98-107); Globulin 2.6 g/dL (2.4-3.5); Glucose 163 mg/dL (83-110); Potassium 4.8 mmol/L (3.5-5.1); Protein, Total 5.8 g/dL (5.8-8.1); Sodium 137 mmol/L (136-145)
[2021-01-29] MEDS: methylPREDNISolone Sod Succ 40 MG VIAL IVP SCH ×3 (05:03→21:04)
[2021-01-29] MEDS: Arformoterol 15 MCG/2 ML NEB NEB SCH ×2 (06:58→18:55)
[2021-01-29] MEDS: Budesonide 0.5 MG/2 ML NEB NEB SCH ×2 (07:06→19:00)
[2021-01-29] MEDS: Mometasone/Formoterol 60 PUFF AER INH SCH ×2 (07:13→22:43)
[2021-01-29] MEDS: Brimonidine Tartrate 0.2% Ophth Soln 5 ml Bottle EA EYE SCH ×2 (08:42→21:11)
[2021-01-29] MEDS: hydrALAZINE 25 MG TAB PO SCH ×3 (08:43→21:10)
[2021-01-29] MEDS: Allopurinol 100 MG TAB PO SCH (08:43)
[2021-01-29] MEDS: Lantus 1000 UNITS/10 ML VIAL SC SCH ×2 (08:45→21:11)
[2021-01-29] MEDS: Docusate 100 MG CAP PO SCH ×2 (08:45→21:24)
[2021-01-29] MEDS: Aspirin 81 mg Enteric Coated Tablet PO SCH (08:45)
[2021-01-29] MEDS: Amlodipine 10 MG TAB PO SCH (08:45)
[2021-01-29] MEDS: Furosemide 40 MG/4 ML VIAL SLOW IVP SCH (08:46)
[2021-01-29] MEDS: cloNIDine 0.1 MG TAB PO SCH ×3 (08:47→21:10)
[2021-01-29] MEDS: Enoxaparin Sodium 40 MG/0.4 ML SYRINGE SC SCH (08:47)
[2021-01-29] MEDS: Lidocaine 5% Patch TD SCH (08:47)
[2021-01-29] MEDS: Carvedilol 12.5 MG TAB PO SCH ×2 (08:47→17:51)
[2021-01-29] MEDS: Amitriptyline HCl 10 MG TAB PO SCH (08:48)
[2021-01-29] MEDS: HumaLOG 300 UNITS/3 ML VIAL SC PRN ×3 (12:56→23:57)
[2021-01-29] MEDS: Furosemide 20 MG TAB PO SCH (15:14)
[2021-01-29] MEDS: Atorvastatin Calcium 10 MG TAB PO SCH (21:09)
[2021-01-29] MEDS: Latanoprost 0.005% Ophth Soln 2.5 ml Bottle EA EYE SCH (21:11)
[2021-01-29] MEDS: diphenhydrAMINE 25 MG CAP PO PRN (21:20)
[2021-01-29] MEDS: Transdermal Patch Removal TOP SCH (21:40)
[2021-01-30] MEDS: methylPREDNISolone Sod Succ 40 MG VIAL IVP SCH (05:40)
[2021-01-30 07:13] LABS: #Monocytes 0.4 10x3/uL (0.0-1.1); #Neutrophils 11.1 10x3/uL (1.5-8.4); %Basophils 0.2 % (0.0-2.0); %Lymphocytes 4.3 % (18.0-47.0); %Monocytes 3.4 % (0.0-10.0); %Neutrophils 89.9 % (40.0-75.0); Hemoglobin 13.2 g/dL (13.5-17.5); Mean Corpuscular HGB CONC 32.7 g/dL (32.0-36.0); Mean Corpuscular Hemoglobin 27.8 pg (27.0-33.0); Mean Corpuscular Volume 85.2 fl (81.2-95.1); Mean Platelet Volume 12.1 fl (7.4-10.4); Platelet Count 201 10x3/uL (150-450); RBC Distribution Width 14.1 % (11.5-14.5); Red Blood Cell (RBC) Count 4.74 10x6/uL (4.32-5.72); White Blood Cell (WBC) Count 12.3 10x3/uL (3.5-10.5)
[2021-01-30] MEDS: Budesonide 0.5 MG/2 ML NEB NEB SCH ×2 (07:23→19:15)
[2021-01-30] MEDS: Arformoterol 15 MCG/2 ML NEB NEB SCH ×2 (07:23→19:10)
[2021-01-30] MEDS: Mometasone/Formoterol 60 PUFF AER INH SCH ×2 (07:26→19:15)
[2021-01-30 07:33] LABS: ALT (SGPT) 28 U/L (8-55); AST (SGOT) 13 U/L (5-34); Albumin 3.2 g/dL (3.4-4.8); Alkaline Phosphatase 51 U/L (40-110); Anion Gap 15 mmol/L (10-20); BUN (Urea Nitrogen) 51 mg/dL (8.4-25.7); Bilirubin, Total 0.4 mg/dL (0.2-1.2); Calc. Creatinine Clearance 51 mL/min (70-130); Calcium 8.5 mg/dL (7.8-10.44); Carbon Dioxide 23 mmol/L (23-31); Chloride 105 mmol/L (98-107); Globulin 2.9 g/dL (2.4-3.5); Glucose 155 mg/dL (83-110); Potassium 4.6 mmol/L (3.5-5.1); Protein, Total 6.1 g/dL (5.8-8.1); Sodium 138 mmol/L (136-145)
[2021-01-30] MEDS: Amlodipine 10 MG TAB PO SCH (09:20)
[2021-01-30] MEDS: Amitriptyline HCl 10 MG TAB PO SCH (09:24)
[2021-01-30] MEDS: Enoxaparin Sodium 40 MG/0.4 ML SYRINGE SC SCH (09:25)
[2021-01-30] MEDS: Furosemide 40 MG/4 ML VIAL SLOW IVP SCH (09:25)
[2021-01-30] MEDS: cloNIDine 0.1 MG TAB PO SCH ×3 (09:25→20:44)
[2021-01-30] MEDS: hydrALAZINE 25 MG TAB PO SCH ×3 (09:25→20:32)
[2021-01-30] MEDS: Carvedilol 12.5 MG TAB PO SCH ×2 (09:25→15:59)
[2021-01-30] MEDS: Lidocaine 5% Patch TD SCH (09:26)
[2021-01-30] MEDS: Allopurinol 100 MG TAB PO SCH (09:26)
[2021-01-30] MEDS: Brimonidine Tartrate 0.2% Ophth Soln 5 ml Bottle EA EYE SCH ×2 (09:26→20:45)
[2021-01-30] MEDS: Docusate 100 MG CAP PO SCH ×2 (09:26→20:44)
[2021-01-30] MEDS: Aspirin 81 mg Enteric Coated Tablet PO SCH (09:27)
[2021-01-30] MEDS: Lantus 1000 UNITS/10 ML VIAL SC SCH ×2 (09:30→20:38)
[2021-01-30] MEDS: HumaLOG 300 UNITS/3 ML VIAL SC PRN ×3 (11:05→20:36)
[2021-01-30] MEDS: Furosemide 20 MG TAB PO SCH (15:59)
[2021-01-30] MEDS: Atorvastatin Calcium 10 MG TAB PO SCH (20:31)
[2021-01-30] MEDS: Latanoprost 0.005% Ophth Soln 2.5 ml Bottle EA EYE SCH (20:44)
[2021-01-30] MEDS: Transdermal Patch Removal TOP SCH (20:46)
[2021-01-31] MEDS: Budesonide 0.5 MG/2 ML NEB NEB SCH ×2 (07:04→19:58)
[2021-01-31] MEDS: Arformoterol 15 MCG/2 ML NEB NEB SCH ×2 (07:05→19:58)
[2021-01-31 07:08] LABS: #Basophils 0.1 10x3/uL (0.0-0.2); #Eosinphils 0.2 10x3/uL (0.0-0.5); #Monocytes 1.1 10x3/uL (0.0-1.1); #Neutrophils 10.3 10x3/uL (1.5-8.4); %Basophils 0.6 % (0.0-2.0); %Eosinophils 1.3 % (0.0-6.0); %Monocytes 8.4 % (0.0-10.0); %Neutrophils 77.1 % (40.0-75.0); Mean Corpuscular Hemoglobin 27.4 pg (27.0-33.0); Mean Corpuscular Volume 85.7 fl (81.2-95.1); Platelet Count 195 10x3/uL (150-450); RBC Distribution Width 14.2 % (11.5-14.5); Red Blood Cell (RBC) Count 4.74 10x6/uL (4.32-5.72); White Blood Cell (WBC) Count 13.4 10x3/uL (3.5-10.5)
[2021-01-31] MEDS: Mometasone/Formoterol 60 PUFF AER INH SCH (07:09)
[2021-01-31 07:28] LABS: ALT (SGPT) 28 U/L (8-55); AST (SGOT) 16 U/L (5-34); Alkaline Phosphatase 49 U/L (40-110); Anion Gap 15 mmol/L (10-20); BUN (Urea Nitrogen) 55 mg/dL (8.4-25.7); Bilirubin, Total 0.3 mg/dL (0.2-1.2); Calc. Creatinine Clearance 51 mL/min (70-130); Calcium 8.3 mg/dL (7.8-10.44); Carbon Dioxide 24 mmol/L (23-31); Chloride 106 mmol/L (98-107); Glucose 77 mg/dL (83-110); Potassium 3.9 mmol/L (3.5-5.1); Sodium 141 mmol/L (136-145)
[2021-01-31] MEDS: Aspirin 81 mg Enteric Coated Tablet PO SCH (09:35)
[2021-01-31] MEDS: Amlodipine 10 MG TAB PO SCH (09:35)
[2021-01-31] MEDS: Allopurinol 100 MG TAB PO SCH (09:35)
[2021-01-31] MEDS: hydrALAZINE 25 MG TAB PO SCH ×3 (09:35→20:23)
[2021-01-31] MEDS: Carvedilol 12.5 MG TAB PO SCH ×2 (09:35→16:08)
[2021-01-31] MEDS: Amitriptyline HCl 10 MG TAB PO SCH (09:35)
[2021-01-31] MEDS: Lidocaine 5% Patch TD SCH (09:35)
[2021-01-31] MEDS: cloNIDine 0.1 MG TAB PO SCH ×3 (09:35→20:24)
[2021-01-31] MEDS: Furosemide 40 MG/4 ML VIAL SLOW IVP SCH (09:35)
[2021-01-31] MEDS: Brimonidine Tartrate 0.2% Ophth Soln 5 ml Bottle EA EYE SCH ×2 (09:38→20:26)
[2021-01-31] MEDS: Docusate 100 MG CAP PO SCH ×2 (09:39→20:29)
[2021-01-31] MEDS: Lantus 1000 UNITS/10 ML VIAL SC SCH ×2 (09:40→21:05)
[2021-01-31] MEDS: Furosemide 20 MG TAB PO SCH (16:08)
[2021-01-31] MEDS: Enoxaparin Sodium 40 MG/0.4 ML SYRINGE SC SCH (16:09)
[2021-01-31] MEDS: Atorvastatin Calcium 10 MG TAB PO SCH (20:24)
[2021-01-31] MEDS: Latanoprost 0.005% Ophth Soln 2.5 ml Bottle EA EYE SCH (20:26)
[2021-01-31] MEDS: Transdermal Patch Removal TOP SCH (20:29)
[2021-02-01 04:44] LABS: ALT (SGPT) 25 U/L (8-55); AST (SGOT) 16 U/L (5-34); Albumin 2.9 g/dL (3.4-4.8); Alkaline Phosphatase 48 U/L (40-110); Anion Gap 13 mmol/L (10-20); BUN (Urea Nitrogen) 48 mg/dL (8.4-25.7); Bilirubin, Total 0.3 mg/dL (0.2-1.2); Calc. Creatinine Clearance 59 mL/min (70-130); Calcium 8.1 mg/dL (7.8-10.44); Carbon Dioxide 24 mmol/L (23-31); Chloride 107 mmol/L (98-107); Globulin 2.8 g/dL (2.4-3.5); Glucose 61 mg/dL (83-110); Potassium 3.9 mmol/L (3.5-5.1); Protein, Total 5.7 g/dL (5.8-8.1); Sodium 140 mmol/L (136-145)
[2021-02-01 04:55] LABS: #Basophils 0.1 10x3/uL (0.0-0.2); #Eosinphils 0.4 10x3/uL (0.0-0.5); #Monocytes 0.9 10x3/uL (0.0-1.1); #Neutrophils 9.7 10x3/uL (1.5-8.4); %Basophils 0.6 % (0.0-2.0); %Lymphocytes 9.6 % (18.0-47.0); %Monocytes 7.1 % (0.0-10.0); %Neutrophils 75.3 % (40.0-75.0); Hemoglobin 12.7 g/dL (13.5-17.5); Mean Corpuscular HGB CONC 32.1 g/dL (32.0-36.0); Mean Corpuscular Hemoglobin 27.7 pg (27.0-33.0); Mean Corpuscular Volume 86.3 fl (81.2-95.1); Mean Platelet Volume 11.8 fl (7.4-10.4); Platelet Count 199 10x3/uL (150-450); RBC Distribution Width 14.5 % (11.5-14.5); Red Blood Cell (RBC) Count 4.59 10x6/uL (4.32-5.72); White Blood Cell (WBC) Count 12.9 10x3/uL (3.5-10.5)
[2021-02-01] MEDS: Arformoterol 15 MCG/2 ML NEB NEB SCH ×2 (06:40→19:00)
[2021-02-01] MEDS: Budesonide 0.5 MG/2 ML NEB NEB SCH ×2 (06:45→19:00)
[2021-02-01] MEDS: hydrALAZINE 25 MG TAB PO SCH ×3 (08:55→20:24)
[2021-02-01] MEDS: Amlodipine 10 MG TAB PO SCH (08:56)
[2021-02-01] MEDS: cloNIDine 0.1 MG TAB PO SCH ×3 (08:57→20:25)
[2021-02-01] MEDS: Amitriptyline HCl 10 MG TAB PO SCH (08:57)
[2021-02-01] MEDS: Aspirin 81 mg Enteric Coated Tablet PO SCH (08:58)
[2021-02-01] MEDS: Allopurinol 100 MG TAB PO SCH (08:58)
[2021-02-01] MEDS: Carvedilol 12.5 MG TAB PO SCH ×2 (08:59→16:30)
[2021-02-01] MEDS: Docusate 100 MG CAP PO SCH ×2 (08:59→20:28)
[2021-02-01] MEDS: Brimonidine Tartrate 0.2% Ophth Soln 5 ml Bottle EA EYE SCH ×2 (09:05→20:27)
[2021-02-01] MEDS: Lidocaine 5% Patch TD SCH (09:05)
[2021-02-01] MEDS: Enoxaparin Sodium 40 MG/0.4 ML SYRINGE SC SCH (09:05)
[2021-02-01] MEDS: Lantus 1000 UNITS/10 ML VIAL SC SCH ×2 (09:09→20:31)
[2021-02-01] MEDS ORDERED: Furosemide 40 MG/4 ML VIAL SLOW IVP SCH (09:30)
[2021-02-01] MEDS: HumaLOG 300 UNITS/3 ML VIAL SC PRN ×3 (11:42→20:29)
[2021-02-01] MEDS: Atorvastatin Calcium 10 MG TAB PO SCH (20:25)
[2021-02-01] MEDS: Acetaminophen 500 MG TAB PO PRN (20:25)
[2021-02-01] MEDS: Latanoprost 0.005% Ophth Soln 2.5 ml Bottle EA EYE SCH (20:27)
[2021-02-01] MEDS: Transdermal Patch Removal TOP SCH (20:28)
[2021-02-02 04:29] LABS: #Eosinphils 0.4 10x3/uL (0.0-0.5); #Neutrophils 9.8 10x3/uL (1.5-8.4); %Basophils 0.3 % (0.0-2.0); %Eosinophils 3.3 % (0.0-6.0); %Lymphocytes 8.3 % (18.0-47.0); %Neutrophils 75.6 % (40.0-75.0); Hemoglobin 11.3 g/dL (13.5-17.5); Mean Corpuscular HGB CONC 31.9 g/dL (32.0-36.0); Mean Corpuscular Volume 87.6 fl (81.2-95.1); Mean Platelet Volume 11.2 fl (7.4-10.4); Platelet Count 176 10x3/uL (150-450); RBC Distribution Width 14.4 % (11.5-14.5); Red Blood Cell (RBC) Count 4.04 10x6/uL (4.32-5.72); White Blood Cell (WBC) Count 12.9 10x3/uL (3.5-10.5)
[2021-02-02 04:40] LABS: ALT (SGPT) 24 U/L (8-55); AST (SGOT) 14 U/L (5-34); Albumin 2.8 g/dL (3.4-4.8); Alkaline Phosphatase 53 U/L (40-110); Anion Gap 11 mmol/L (10-20); BUN (Urea Nitrogen) 40 mg/dL (8.4-25.7); Bilirubin, Total 0.3 mg/dL (0.2-1.2); Calc. Creatinine Clearance 56 mL/min (70-130); Calcium 7.9 mg/dL (7.8-10.44); Carbon Dioxide 26 mmol/L (23-31); Chloride 106 mmol/L (98-107); Globulin 2.4 g/dL (2.4-3.5); Glucose 117 mg/dL (83-110); Protein, Total 5.2 g/dL (5.8-8.1); Sodium 139 mmol/L (136-145)
[2021-02-02] MEDS: Arformoterol 15 MCG/2 ML NEB NEB SCH ×2 (06:35→18:35)
[2021-02-02] MEDS: Budesonide 0.5 MG/2 ML NEB NEB SCH ×2 (06:40→18:35)
[2021-02-02] MEDS: Docusate 100 MG CAP PO SCH ×3 (07:32→20:54)
[2021-02-02] MEDS: hydrALAZINE 25 MG TAB PO SCH ×3 (07:32→20:55)
[2021-02-02] MEDS: Allopurinol 100 MG TAB PO SCH (07:32)
[2021-02-02] MEDS: Amitriptyline HCl 10 MG TAB PO SCH (07:33)
[2021-02-02] MEDS: Aspirin 81 mg Enteric Coated Tablet PO SCH (07:33)
[2021-02-02] MEDS: Carvedilol 12.5 MG TAB PO SCH ×2 (07:33→17:10)
[2021-02-02] MEDS: Amlodipine 10 MG TAB PO SCH (07:33)
[2021-02-02] MEDS: Lidocaine 5% Patch TD SCH (07:33)
[2021-02-02] MEDS: Furosemide 40 MG/4 ML VIAL SLOW IVP SCH (07:33)
[2021-02-02] MEDS: cloNIDine 0.1 MG TAB PO SCH ×3 (07:33→20:54)
[2021-02-02] MEDS: Brimonidine Tartrate 0.2% Ophth Soln 5 ml Bottle EA EYE SCH ×2 (07:34→20:56)
[2021-02-02] MEDS: Enoxaparin Sodium 40 MG/0.4 ML SYRINGE SC SCH (07:34)
[2021-02-02] MEDS: Triamcinolone 0.1% Cream 15 GM TUBE TOP PRN ×3 (07:48→20:58)
[2021-02-02] MEDS: Simethicone Chewable 80 MG TAB PO PRN ×2 (10:15→17:50)
[2021-02-02] MEDS: HumaLOG 300 UNITS/3 ML VIAL SC PRN ×3 (11:32→21:11)
[2021-02-02 16:31] LABS: Actual Bicarbonate (HCO3a) 26.3 mEq/L (22-28); Base Excess (BEa) 3.1 mEq/L (-2.0 to +3.0); CO2 Tension 35.4 mmHg (35.0-45.0); Calcium, Ionized (arterial) 1.11 mmol/L (1.12-1.30); Carboxyhemoglobin (COHb) 0.2 gm% (0.0-3.0); Critical Notified By: RT GC; Hemoglobin (Hb) 12.5 g/dL (14.0-18.0); O2 Tension (PaO2), arterial 53.9 mmHg (> 70.0); Puncture Site RRA; RapidComm Collect By GC RT; pH, Arterial 7.49 (7.35-7.45)
[2021-02-02] MEDS: methylPREDNISolone Sod Succ/PF 125 MG/2 ML VIAL IVP SCH (17:10)
[2021-02-02] MEDS ORDERED: predniSONE 50 MG TAB PO SCH (20:00)
[2021-02-02] MEDS: Atorvastatin Calcium 10 MG TAB PO SCH (20:54)
[2021-02-02] MEDS: Acetaminophen 500 MG TAB PO PRN (20:54)
[2021-02-02] MEDS: Latanoprost 0.005% Ophth Soln 2.5 ml Bottle EA EYE SCH (20:56)
[2021-02-02] MEDS: Transdermal Patch Removal TOP SCH (20:57)
[2021-02-02] MEDS: Lantus 1000 UNITS/10 ML VIAL SC SCH (21:11)
[2021-02-03] MEDS: methylPREDNISolone Sod Succ/PF 125 MG/2 ML VIAL IVP SCH ×4 (00:05→18:16)
[2021-02-03] MEDS ORDERED: predniSONE 50 MG TAB PO SCH ×2 (03:00→08:00)
[2021-02-03] MEDS: HumaLOG 300 UNITS/3 ML VIAL SC PRN ×3 (03:48→23:22)
[2021-02-03] MEDS ORDERED: diphenhydrAMINE 50 MG CAP PO SCH (08:00)
[2021-02-03] MEDS: Arformoterol 15 MCG/2 ML NEB NEB SCH ×2 (09:28→18:40)
[2021-02-03] MEDS: Budesonide 0.5 MG/2 ML NEB NEB SCH ×2 (09:28→18:40)
[2021-02-03] MEDS: Brimonidine Tartrate 0.2% Ophth Soln 5 ml Bottle EA EYE SCH ×2 (10:00→20:46)
[2021-02-03] MEDS ORDERED: Aspirin 81 mg Enteric Coated Tablet ONE (10:40)
[2021-02-03] MEDS: hydrALAZINE 25 MG TAB PO SCH ×3 (10:45→20:48)
[2021-02-03] MEDS: Allopurinol 100 MG TAB PO SCH (10:45)
[2021-02-03] MEDS: Carvedilol 12.5 MG TAB PO SCH ×2 (10:45→15:21)
[2021-02-03] MEDS: Aspirin 81 mg Enteric Coated Tablet PO SCH (10:45)
[2021-02-03] MEDS: Amitriptyline HCl 10 MG TAB PO SCH (10:45)
[2021-02-03] MEDS: Docusate 100 MG CAP PO SCH ×2 (10:45→20:48)
[2021-02-03] MEDS: cloNIDine 0.1 MG TAB PO SCH ×3 (10:46→20:47)
[2021-02-03] MEDS: Amlodipine 10 MG TAB PO SCH (10:46)
[2021-02-03] MEDS: Enoxaparin Sodium 40 MG/0.4 ML SYRINGE SC SCH (10:46)
[2021-02-03] MEDS: Furosemide 40 MG/4 ML VIAL SLOW IVP SCH (10:46)
[2021-02-03] MEDS: Lidocaine 5% Patch TD SCH (10:47)
[2021-02-03] MEDS ORDERED: Lidocaine 2% Viscous Solution 20 ML, Aluminum & Magnesium Hydroxide 30 ML, Donnatal Eli... SSW SCH (14:15)
[2021-02-03] MEDS: cloNIDine 0.1mg/24 Hour PATCH TD SCH (15:20)
[2021-02-03] MEDS: Triamcinolone 0.1% Cream 15 GM TUBE TOP PRN ×2 (15:45→20:54)
[2021-02-03] MEDS: Simethicone Chewable 80 MG TAB PO PRN (15:45)
[2021-02-03] MEDS ORDERED: Lantus 1000 UNITS/10 ML VIAL SC SCH ×2 (16:19→21:00)
[2021-02-03] MEDS ORDERED: Dextrose 5% in Water 1,000 ML IV PRN (16:20)
[2021-02-03] MEDS ORDERED: Dextrose 50% Abboject 50 ML SYRINGE SLOW IVP PRN (16:20)
[2021-02-03 17:05] LABS: #Monocytes 0.1 10x3/uL (0.0-1.1); #Neutrophils 16.5 10x3/uL (1.5-8.4); %Basophils 0.1 % (0.0-2.0); %Lymphocytes 3.3 % (18.0-47.0); %Monocytes 0.7 % (0.0-10.0); %Neutrophils 93.1 % (40.0-75.0); Hemoglobin 12.9 g/dL (13.5-17.5); Mean Corpuscular HGB CONC 32.4 g/dL (32.0-36.0); Mean Corpuscular Hemoglobin 27.7 pg (27.0-33.0); Mean Corpuscular Volume 85.6 fl (81.2-95.1); Mean Platelet Volume 12.6 fl (7.4-10.4); Platelet Count 221 10x3/uL (150-450); RBC Distribution Width 14.6 % (11.5-14.5); Red Blood Cell (RBC) Count 4.65 10x6/uL (4.32-5.72); White Blood Cell (WBC) Count 17.8 10x3/uL (3.5-10.5)
[2021-02-03 17:17] LABS: Anion Gap 17 mmol/L (10-20); BUN (Urea Nitrogen) 47 mg/dL (8.4-25.7); Calc. Creatinine Clearance 52 mL/min (70-130); Calcium 8.3 mg/dL (7.8-10.44); Carbon Dioxide 21 mmol/L (23-31); Chloride 100 mmol/L (98-107); Magnesium 2.2 mg/dL (1.6-2.6); Phosphorus 3.5 mg/dL (2.3-4.7); Potassium 4.6 mmol/L (3.5-5.1); Sodium 133 mmol/L (136-145)
[2021-02-03 17:37] LABS: Glucose 559 mg/dL (83-110)
[2021-02-03] MEDS: Latanoprost 0.005% Ophth Soln 2.5 ml Bottle EA EYE SCH (20:46)
[2021-02-03] MEDS: Atorvastatin Calcium 10 MG TAB PO SCH (20:48)
[2021-02-03] MEDS: Transdermal Patch Removal TOP SCH (20:58)
[2021-02-04] MEDS: HumaLOG 300 UNITS/3 ML VIAL SC PRN ×4 (02:15→23:56)
[2021-02-04 05:26] LABS: ALT (SGPT) 20 U/L (8-55); AST (SGOT) 10 U/L (5-34); Albumin 3.2 g/dL (3.4-4.8); Alkaline Phosphatase 64 U/L (40-110); Anion Gap 17 mmol/L (10-20); BUN (Urea Nitrogen) 48 mg/dL (8.4-25.7); Bilirubin, Total 0.2 mg/dL (0.2-1.2); Calc. Creatinine Clearance 50 mL/min (70-130); Calcium 8.4 mg/dL (7.8-10.44); Carbon Dioxide 21 mmol/L (23-31); Chloride 104 mmol/L (98-107); Globulin 3.4 g/dL (2.4-3.5); Glucose 331 mg/dL (83-110); Hemoglobin 12.3 g/dL (13.5-17.5); Magnesium 2.4 mg/dL (1.6-2.6); Mean Corpuscular HGB CONC 32.6 g/dL (32.0-36.0); Mean Corpuscular Hemoglobin 27.9 pg (27.0-33.0); Mean Corpuscular Volume 85.5 fl (81.2-95.1); Mean Platelet Volume 12.1 fl (7.4-10.4); Phosphorus 3.2 mg/dL (2.3-4.7); Platelet Count 209 10x3/uL (150-450); Potassium 4.3 mmol/L (3.5-5.1); Protein, Total 6.6 g/dL (5.8-8.1); RBC Distribution Width 14.6 % (11.5-14.5); Red Blood Cell (RBC) Count 4.41 10x6/uL (4.32-5.72); Sodium 138 mmol/L (136-145); White Blood Cell (WBC) Count 22.5 10x3/uL (3.5-10.5)
[2021-02-04 05:49] LABS: MDiff Complete? YES
[2021-02-04 05:52] LABS: Lymphocytes 3 % (21-51); Monocytes 3 % (0-10); Neutrophil 94 % (42-75); Nucleated RBC 1 % (0)
[2021-02-04 05:53] LABS: Platelet Morphology Comment Appears Adequate
[2021-02-04 05:54] LABS: Anisocytosis SLIGHT = 6-15 cells (100X) (0-5/hpf)
[2021-02-04] MEDS: Arformoterol 15 MCG/2 ML NEB NEB SCH ×2 (07:15→19:05)
[2021-02-04] MEDS: Budesonide 0.5 MG/2 ML NEB NEB SCH ×2 (07:20→19:00)
[2021-02-04] MEDS: predniSONE 20 MG TAB PO SCH (08:41)
[2021-02-04] MEDS: cloNIDine 0.1 MG TAB PO SCH ×3 (08:41→23:39)
[2021-02-04] MEDS: Allopurinol 100 MG TAB PO SCH (08:41)
[2021-02-04] MEDS: Docusate 100 MG CAP PO SCH ×2 (08:41→23:40)
[2021-02-04] MEDS: Amitriptyline HCl 10 MG TAB PO SCH (08:41)
[2021-02-04] MEDS: Amlodipine 10 MG TAB PO SCH (08:41)
[2021-02-04] MEDS: Enoxaparin Sodium 40 MG/0.4 ML SYRINGE SC SCH (08:41)
[2021-02-04] MEDS: hydrALAZINE 25 MG TAB PO SCH ×3 (08:41→23:42)
[2021-02-04] MEDS: Carvedilol 12.5 MG TAB PO SCH ×2 (08:41→17:24)
[2021-02-04] MEDS: Aspirin 81 mg Enteric Coated Tablet PO SCH (08:41)
[2021-02-04] MEDS: Lidocaine 5% Patch TD SCH (08:42)
[2021-02-04] MEDS: Brimonidine Tartrate 0.2% Ophth Soln 5 ml Bottle EA EYE SCH ×2 (08:42→23:38)
[2021-02-04] MEDS ORDERED: NPH, Human Insulin Isophane 300 UNIT/3 ML VIAL SC SCH (09:00)
[2021-02-04 14:25] LABS: SARS-CoV-2 PCR by NAA Not Detected (NotDetected)
[2021-02-04 16:18] LABS: ANA Symphony (Qualitative) Negative (Negative); ANA Symphony (Quantitative) 0.2 Ratio (< 0.7 Negative); CCP IgG Antibody 1.1 EliAU/mL (<7 Negative); EliA RAS New Method **** NEW METHOD ****; Rheumatoid Factor IgA Antibody 5.4 IU/mL (<14 Negative); Rheumatoid Factor IgM Antibody 3.2 IU/mL (<3.5 Negative); dsDNA IgG Antibody 0.8 IU/mL (<10 Negative)
[2021-02-04] MEDS: Latanoprost 0.005% Ophth Soln 2.5 ml Bottle EA EYE SCH (23:38)
[2021-02-04] MEDS: Atorvastatin Calcium 10 MG TAB PO SCH (23:40)
[2021-02-04] MEDS: Lantus 1000 UNITS/10 ML VIAL SC SCH (23:54)
[2021-02-04] MEDS: Transdermal Patch Removal TOP SCH (23:55)
[2021-02-05 04:33] LABS: #Neutrophils 16.6 10x3/uL (1.5-8.4); %Basophils 0.2 % (0.0-2.0); %Lymphocytes 4.7 % (18.0-47.0); %Monocytes 5.5 % (0.0-10.0); %Neutrophils 87.8 % (40.0-75.0); Hemoglobin 11.8 g/dL (13.5-17.5); Mean Corpuscular HGB CONC 32.7 g/dL (32.0-36.0); Mean Corpuscular Volume 85.7 fl (81.2-95.1); Mean Platelet Volume 11.7 fl (7.4-10.4); Platelet Count 200 10x3/uL (150-450); RBC Distribution Width 14.6 % (11.5-14.5); Red Blood Cell (RBC) Count 4.21 10x6/uL (4.32-5.72); White Blood Cell (WBC) Count 18.8 10x3/uL (3.5-10.5)
[2021-02-05 04:48] LABS: ALT (SGPT) 25 U/L (8-55); AST (SGOT) 16 U/L (5-34); Albumin 2.9 g/dL (3.4-4.8); Alkaline Phosphatase 53 U/L (40-110); Anion Gap 13 mmol/L (10-20); BUN (Urea Nitrogen) 47 mg/dL (8.4-25.7); Bilirubin, Total 0.2 mg/dL (0.2-1.2); Calc. Creatinine Clearance 61 mL/min (70-130); Calcium 8.1 mg/dL (7.8-10.44); Carbon Dioxide 22 mmol/L (23-31); Chloride 108 mmol/L (98-107); Glucose 168 mg/dL (83-110); Magnesium 2.3 mg/dL (1.6-2.6); Phosphorus 2.9 mg/dL (2.3-4.7); Potassium 3.9 mmol/L (3.5-5.1); Protein, Total 5.9 g/dL (5.8-8.1); Sodium 139 mmol/L (136-145)
[2021-02-05] MEDS: Budesonide 0.5 MG/2 ML NEB NEB SCH ×2 (07:25→19:05)
[2021-02-05] MEDS: Arformoterol 15 MCG/2 ML NEB NEB SCH ×2 (07:25→19:00)
[2021-02-05] MEDS: hydrALAZINE 25 MG TAB PO SCH ×3 (09:37→20:13)
[2021-02-05] MEDS: predniSONE 20 MG TAB PO SCH (09:37)
[2021-02-05] MEDS: Amitriptyline HCl 10 MG TAB PO SCH (09:37)
[2021-02-05] MEDS: Docusate 100 MG CAP PO SCH ×2 (09:38→20:11)
[2021-02-05] MEDS: Aspirin 81 mg Enteric Coated Tablet PO SCH (09:38)
[2021-02-05] MEDS: Enoxaparin Sodium 40 MG/0.4 ML SYRINGE SC SCH (09:39)
[2021-02-05] MEDS: Carvedilol 12.5 MG TAB PO SCH ×2 (09:39→18:10)
[2021-02-05] MEDS: cloNIDine 0.1 MG TAB PO SCH ×3 (09:39→20:11)
[2021-02-05] MEDS: Amlodipine 10 MG TAB PO SCH (09:39)
[2021-02-05] MEDS: Allopurinol 100 MG TAB PO SCH (09:39)
[2021-02-05] MEDS: Lidocaine 5% Patch TD SCH (09:40)
[2021-02-05] MEDS: Bumetanide 1 MG TAB PO SCH (09:42)
[2021-02-05] MEDS: Brimonidine Tartrate 0.2% Ophth Soln 5 ml Bottle EA EYE SCH ×2 (09:43→20:13)
[2021-02-05] MEDS: HumaLOG 300 UNITS/3 ML VIAL SC PRN ×2 (18:29→20:32)
[2021-02-05] MEDS: Atorvastatin Calcium 10 MG TAB PO SCH (20:11)
[2021-02-05] MEDS: Latanoprost 0.005% Ophth Soln 2.5 ml Bottle EA EYE SCH (20:13)
[2021-02-05] MEDS: Transdermal Patch Removal TOP SCH (20:14)
[2021-02-05] MEDS: Lantus 1000 UNITS/10 ML VIAL SC SCH (20:32)
[2021-02-06 04:12] LABS: #Monocytes 0.8 10x3/uL (0.0-1.1); #Neutrophils 12.7 10x3/uL (1.5-8.4); %Basophils 0.3 % (0.0-2.0); %Lymphocytes 5.6 % (18.0-47.0); %Monocytes 5.4 % (0.0-10.0); %Neutrophils 86.4 % (40.0-75.0); Hemoglobin 11.6 g/dL (13.5-17.5); Mean Corpuscular HGB CONC 32.5 g/dL (32.0-36.0); Mean Platelet Volume 11.7 fl (7.4-10.4); Platelet Count 207 10x3/uL (150-450); RBC Distribution Width 14.9 % (11.5-14.5); Red Blood Cell (RBC) Count 4.15 10x6/uL (4.32-5.72); White Blood Cell (WBC) Count 14.6 10x3/uL (3.5-10.5)
[2021-02-06 04:30] LABS: ALT (SGPT) 31 U/L (8-55); AST (SGOT) 15 U/L (5-34); Alkaline Phosphatase 54 U/L (40-110); Anion Gap 13 mmol/L (10-20); BUN (Urea Nitrogen) 51 mg/dL (8.4-25.7); Bilirubin, Total 0.3 mg/dL (0.2-1.2); Calc. Creatinine Clearance 55 mL/min (70-130); Calcium 8.1 mg/dL (7.8-10.44); Carbon Dioxide 25 mmol/L (23-31); Chloride 103 mmol/L (98-107); Globulin 2.8 g/dL (2.4-3.5); Glucose 206 mg/dL (83-110); Magnesium 2.2 mg/dL (1.6-2.6); Phosphorus 3.1 mg/dL (2.3-4.7); Protein, Total 5.8 g/dL (5.8-8.1); Sodium 137 mmol/L (136-145)
[2021-02-06] MEDS: Arformoterol 15 MCG/2 ML NEB NEB SCH ×2 (07:20→19:00)
[2021-02-06] MEDS: Budesonide 0.5 MG/2 ML NEB NEB SCH ×2 (07:30→19:10)
[2021-02-06] MEDS: Amlodipine 10 MG TAB PO SCH (08:54)
[2021-02-06] MEDS: Carvedilol 12.5 MG TAB PO SCH ×2 (08:54→16:09)
[2021-02-06] MEDS: hydrALAZINE 25 MG TAB PO SCH ×3 (08:54→20:42)
[2021-02-06] MEDS: predniSONE 20 MG TAB PO SCH (08:54)
[2021-02-06] MEDS: cloNIDine 0.1 MG TAB PO SCH ×3 (08:54→20:43)
[2021-02-06] MEDS: Enoxaparin Sodium 40 MG/0.4 ML SYRINGE SC SCH (08:54)
[2021-02-06] MEDS: Lidocaine 5% Patch TD SCH (08:55)
[2021-02-06] MEDS: Bumetanide 1 MG TAB PO SCH (08:55)
[2021-02-06] MEDS: Aspirin 81 mg Enteric Coated Tablet PO SCH (08:55)
[2021-02-06] MEDS: Amitriptyline HCl 10 MG TAB PO SCH (08:55)
[2021-02-06] MEDS: Allopurinol 100 MG TAB PO SCH (08:55)
[2021-02-06] MEDS: Brimonidine Tartrate 0.2% Ophth Soln 5 ml Bottle EA EYE SCH ×2 (08:55→20:43)
[2021-02-06] MEDS: Docusate 100 MG CAP PO SCH ×2 (08:56→20:43)
[2021-02-06] MEDS: HumaLOG 300 UNITS/3 ML VIAL SC PRN ×2 (16:09→20:54)
[2021-02-06] MEDS: Atorvastatin Calcium 10 MG TAB PO SCH (20:43)
[2021-02-06] MEDS: Latanoprost 0.005% Ophth Soln 2.5 ml Bottle EA EYE SCH (20:43)
[2021-02-06] MEDS: Transdermal Patch Removal TOP SCH (20:44)
[2021-02-06] MEDS: Acetaminophen 500 MG TAB PO PRN (20:44)
[2021-02-06] MEDS: Lantus 1000 UNITS/10 ML VIAL SC SCH (20:53)
[2021-02-07 04:12] LABS: #Basophils 0.1 10x3/uL (0.0-0.2); #Monocytes 0.9 10x3/uL (0.0-1.1); #Neutrophils 12.7 10x3/uL (1.5-8.4); %Basophils 0.3 % (0.0-2.0); %Eosinophils 0.1 % (0.0-6.0); %Lymphocytes 6.6 % (18.0-47.0); %Monocytes 5.7 % (0.0-10.0); %Neutrophils 84.6 % (40.0-75.0); Hemoglobin 11.6 g/dL (13.5-17.5); Mean Corpuscular HGB CONC 32.6 g/dL (32.0-36.0); Mean Corpuscular Hemoglobin 27.8 pg (27.0-33.0); Mean Corpuscular Volume 85.4 fl (81.2-95.1); Mean Platelet Volume 11.7 fl (7.4-10.4); Platelet Count 211 10x3/uL (150-450); RBC Distribution Width 14.7 % (11.5-14.5); Red Blood Cell (RBC) Count 4.17 10x6/uL (4.32-5.72)
[2021-02-07 04:28] LABS: ALT (SGPT) 38 U/L (8-55); AST (SGOT) 18 U/L (5-34); Albumin 3.1 g/dL (3.4-4.8); Alkaline Phosphatase 58 U/L (40-110); Anion Gap 12 mmol/L (10-20); BUN (Urea Nitrogen) 46 mg/dL (8.4-25.7); Bilirubin, Total 0.3 mg/dL (0.2-1.2); Calc. Creatinine Clearance 58 mL/min (70-130); Calcium 8.2 mg/dL (7.8-10.44); Carbon Dioxide 24 mmol/L (23-31); Chloride 102 mmol/L (98-107); Globulin 2.7 g/dL (2.4-3.5); Glucose 113 mg/dL (83-110); Magnesium 2.1 mg/dL (1.6-2.6); Phosphorus 3.1 mg/dL (2.3-4.7); Potassium 3.7 mmol/L (3.5-5.1); Protein, Total 5.8 g/dL (5.8-8.1); Sodium 134 mmol/L (136-145)
[2021-02-07] MEDS: Arformoterol 15 MCG/2 ML NEB NEB SCH (06:44)
[2021-02-07] MEDS: Budesonide 0.5 MG/2 ML NEB NEB SCH (06:48)
[2021-02-07] MEDS: predniSONE 20 MG TAB PO SCH (08:51)
[2021-02-07] MEDS: Carvedilol 12.5 MG TAB PO SCH (08:51)
[2021-02-07] MEDS: Aspirin 81 mg Enteric Coated Tablet PO SCH (08:51)
[2021-02-07] MEDS: hydrALAZINE 25 MG TAB PO SCH (08:51)
[2021-02-07] MEDS: Enoxaparin Sodium 40 MG/0.4 ML SYRINGE SC SCH (08:51)
[2021-02-07] MEDS: cloNIDine 0.1 MG TAB PO SCH (08:51)
[2021-02-07] MEDS: Amlodipine 10 MG TAB PO SCH (08:52)
[2021-02-07] MEDS: Allopurinol 100 MG TAB PO SCH (08:52)
[2021-02-07] MEDS: Amitriptyline HCl 10 MG TAB PO SCH (08:52)
[2021-02-07] MEDS: Docusate 100 MG CAP PO SCH (08:52)
[2021-02-07] MEDS: Bumetanide 1 MG TAB PO SCH (08:52)
[2021-02-07] MEDS: Brimonidine Tartrate 0.2% Ophth Soln 5 ml Bottle EA EYE SCH (08:52)
[2021-02-07] MEDS: Lidocaine 5% Patch TD SCH (08:52)
[2021-02-07 09:44] VITALS: BMI 32.4
[2021-02-07 12:17] VITALS: BP 131/63; TEMP 97.4
== END 2021-02-07 12:24 | DRG 193 ==
LOC: CSHERS 16:59 → CSHIMCU 21:05 → CSHTELE 01-20 16:45
PROVIDERS: ADMIT Family Medicine; ATTEND Family Medicine
PROC: 5A09357 Assistance with Respiratory Ventilation, Less than 24 Consecutive Hours, Continuous Positive Airway Pressure (ICD-10-PCS; principal; 2021-01-19)
DX: J18.9 Pneumonia, unspecified organism (principal); J96.21 Acute and chronic respiratory failure with hypoxia; I13.0 Hypertensive heart and chronic kidney disease with heart failure and stage 1 through stage 4 chronic kidney disease, or unspecified chronic kidney disease; I16.1 Hypertensive emergency; I50.32 Chronic diastolic (congestive) heart failure; J44.1 Chronic obstructive pulmonary disease with (acute) exacerbation; I25.10 Atherosclerotic heart disease of native coronary artery without angina pectoris; N18.30 Chronic kidney disease, stage 3 unspecified; M10.9 Gout, unspecified; G47.33 Obstructive sleep apnea (adult) (pediatric); E78.5 Hyperlipidemia, unspecified; E11.65 Type 2 diabetes mellitus with hyperglycemia; Z20.822 Contact with and (suspected) exposure to COVID-19; H40.10X0 Unspecified open-angle glaucoma, stage unspecified; E11.22 Type 2 diabetes mellitus with diabetic chronic kidney disease; Z88.8 Allergy status to other drugs, medicaments and biological substances; Z91.041 Radiographic dye allergy status; Z79.82 Long term (current) use of aspirin; Z79.899 Other long term (current) drug therapy; Z95.5 Presence of coronary angioplasty implant and graft; Z90.49 Acquired absence of other specified parts of digestive tract; Z87.891 Personal history of nicotine dependence; Z79.4 Long term (current) use of insulin
CPT/HCPCS: 36415; 36416; 36600; 70450; 71045; 71046; 71250; 71275; 74230; 78451; 80048; 80053; 80061; 82164; 82553; 82805; 83520; 83735; 83880; 84100; 84145; 84484; 85025; 85379; 85652; 86038; 86140; 86200; 86225; 87449; 87633; 87899; 93005; 93010; 93880; 94640; 94660; 94664; 94760; 94762; 94799; 96374; 96375; A9540; C9113; J1650; J1815; J1940; J2543; J2920; J2930; J3475; J3490; J7512; J7620; J7626; U0002; U0003; U0005

== ENCOUNTER 2021-03-30 13:09 | Inpatient (IN) | payer MEDICARE ==
[2021-03-30 14:07] LABS: #Basophils 0.1 10x3/uL (0.0-0.2); #Eosinphils 0.1 10x3/uL (0.0-0.5); #Neutrophils 6.9 10x3/uL (1.5-8.4); %Basophils 0.6 % (0.0-2.0); %Eosinophils 1.5 % (0.0-6.0); %Lymphocytes 7.3 % (18.0-47.0); %Monocytes 10.8 % (0.0-10.0); %Neutrophils 78.8 % (40.0-75.0); Hemoglobin 11.6 g/dL (13.5-17.5); Mean Corpuscular Hemoglobin 27.8 pg (27.0-33.0); Mean Corpuscular Volume 89.5 fl (81.2-95.1); Mean Platelet Volume 10.8 fl (7.4-10.4); Platelet Count 207 10x3/uL (150-450); RBC Distribution Width 16.9 % (11.5-14.5); Red Blood Cell (RBC) Count 4.18 10x6/uL (4.32-5.72); White Blood Cell (WBC) Count 8.8 10x3/uL (3.5-10.5)
[2021-03-30 14:22] LABS: ALT (SGPT) 16 U/L (8-55); AST (SGOT) 19 U/L (5-34); Albumin 3.8 g/dL (3.4-4.8); Alkaline Phosphatase 71 U/L (40-110); Anion Gap 13 mmol/L (10-20); BUN (Urea Nitrogen) 21 mg/dL (8.4-25.7); Bilirubin, Total 0.5 mg/dL (0.2-1.2); Calc. Creatinine Clearance 0 mL/min (70-130); Calcium 8.7 mg/dL (7.8-10.44); Carbon Dioxide 28 mmol/L (23-31); Chloride 106 mmol/L (98-107); Globulin 2.8 g/dL (2.4-3.5); Glucose 233 mg/dL (83-110); Potassium 3.8 mmol/L (3.5-5.1); Protein, Total 6.6 g/dL (5.8-8.1); Sodium 143 mmol/L (136-145)
[2021-03-30] MEDS ORDERED: Furosemide 40 MG/4 ML VIAL ONE (14:24)
[2021-03-30 15:23] LABS: SARS-CoV-2 NAA Rapid Test DETECTED (NotDetected)
[2021-03-30] MEDS ORDERED: Acetaminophen 500 MG TAB ONE (15:58)
[2021-03-30] MEDS ORDERED: Senokot S 8.6-50 MG TAB PO PRN (17:26)
[2021-03-30] MEDS ORDERED: Acetaminophen 325 MG TAB PO PRN (17:26)
[2021-03-30] MEDS ORDERED: Ventolin HFA Inhaler 60 PUFF INHALER INH PRN (17:31)
[2021-03-30] MEDS ORDERED: Dextrose 50% Abboject 50 ML SYRINGE SLOW IVP PRN (17:45)
[2021-03-30] MEDS ORDERED: Dextrose 5% in Water 1,000 ML IV PRN (17:45)
[2021-03-30] MEDS ORDERED: Dexamethasone 20 MG/5 ML VIAL SLOW IVP SCH (20:00)
[2021-03-30] MEDS ORDERED: Dexamethasone 10 MG/ML VIAL ONE (20:39)
[2021-03-30] MEDS ORDERED: Famotidine/PF 20 mg/2ml Vial ONE (20:40)
[2021-03-30] MEDS: guaiFENesin ER 600 MG TAB PO SCH (21:07)
[2021-03-30] MEDS: Lantus 1000 UNITS/10 ML VIAL SC SCH (21:07)
[2021-03-30] MEDS: Famotidine/PF 20 mg/2ml Vial SLOW IVP SCH (21:07)
[2021-03-30] MEDS ORDERED: HYDROcodone/Acetaminophen 5/325 mg Tablet ONE (21:23)
[2021-03-30] MEDS: HYDROcodone/Acetaminophen 5/325 mg Tablet PO PRN (21:23)
[2021-03-30] MEDS: HumaLOG 300 UNITS/3 ML VIAL SC PRN (23:19)
[2021-03-31 05:30] LABS: #Monocytes 0.2 10x3/uL (0.0-1.1); #Neutrophils 6.5 10x3/uL (1.5-8.4); %Basophils 0.3 % (0.0-2.0); %Neutrophils 88.5 % (40.0-75.0); Hemoglobin 12.4 g/dL (13.5-17.5); Mean Corpuscular HGB CONC 31.3 g/dL (32.0-36.0); Mean Corpuscular Hemoglobin 27.7 pg (27.0-33.0); Mean Corpuscular Volume 88.4 fl (81.2-95.1); Mean Platelet Volume 11.2 fl (7.4-10.4); Platelet Count 208 10x3/uL (150-450); RBC Distribution Width 16.8 % (11.5-14.5); Red Blood Cell (RBC) Count 4.48 10x6/uL (4.32-5.72); White Blood Cell (WBC) Count 7.3 10x3/uL (3.5-10.5)
[2021-03-31 05:42] LABS: Anion Gap 12 mmol/L (10-20); BUN (Urea Nitrogen) 21 mg/dL (8.4-25.7); Calc. Creatinine Clearance 0 mL/min (70-130); Calcium 9.3 mg/dL (7.8-10.44); Carbon Dioxide 31 mmol/L (23-31); Chloride 101 mmol/L (98-107); Glucose 173 mg/dL (83-110); Potassium 4.2 mmol/L (3.5-5.1); Sodium 140 mmol/L (136-145)
[2021-03-31] MEDS: Furosemide 40 MG/4 ML VIAL SLOW IVP SCH ×2 (06:38→16:38)
[2021-03-31] MEDS ORDERED: Furosemide 100 MG/10 ML VIAL ONE (06:42)
[2021-03-31] MEDS ORDERED: Dexamethasone 10 MG/ML VIAL ONE (10:21)
[2021-03-31] MEDS ORDERED: Enoxaparin Sodium 40 MG/0.4 ML SYRINGE ONE (10:21)
[2021-03-31] MEDS ORDERED: Ondansetron PF 4 MG/2 ML Vial ONE ×2 (10:22→22:25)
[2021-03-31] MEDS: Dexamethasone 20 MG/5 ML VIAL SLOW IVP SCH (10:34)
[2021-03-31] MEDS: Enoxaparin Sodium 40 MG/0.4 ML SYRINGE SC SCH (10:34)
[2021-03-31] MEDS: Ondansetron PF 4 MG/2 ML Vial IVP PRN ×2 (10:35→22:42)
[2021-03-31] MEDS ORDERED: Aspirin Chewable 81 MG TAB ONE (11:01)
[2021-03-31] MEDS ORDERED: Famotidine/PF 20 mg/2ml Vial ONE ×2 (11:04→22:12)
[2021-03-31] MEDS ORDERED: Ascorbic Acid 500 mg Chewable Tablet ONE (11:05)
[2021-03-31] MEDS ORDERED: Zinc Sulfate 220 MG CAP ONE (11:05)
[2021-03-31] MEDS: Famotidine/PF 20 mg/2ml Vial SLOW IVP SCH ×2 (11:13→22:10)
[2021-03-31] MEDS: Ascorbic Acid 500 mg Chewable Tablet PO SCH (11:13)
[2021-03-31] MEDS: Aspirin Chewable 81 MG TAB PO SCH (11:13)
[2021-03-31] MEDS: Cholecalciferol (Vitamin D3) 400 UNITS TAB PO SCH (11:13)
[2021-03-31] MEDS: Zinc Sulfate 220 MG CAP PO SCH (11:14)
[2021-03-31] MEDS: guaiFENesin ER 600 MG TAB PO SCH ×2 (11:14→22:19)
[2021-03-31] MEDS ORDERED: Furosemide 40 MG/4 ML VIAL ONE (16:24)
[2021-03-31] MEDS ORDERED: Ventolin HFA Inhaler 60 PUFF INHALER ONE (16:39)
[2021-03-31 16:43] VITALS: TEMP 97.7
[2021-03-31] MEDS: HumaLOG 300 UNITS/3 ML VIAL SC PRN ×2 (18:08→22:42)
[2021-03-31] MEDS ORDERED: HYDROcodone/Acetaminophen 5/325 mg Tablet ONE (20:00)
[2021-03-31] MEDS: HYDROcodone/Acetaminophen 5/325 mg Tablet PO PRN (22:18)
[2021-03-31] MEDS: Lantus 1000 UNITS/10 ML VIAL SC SCH (22:42)
[2021-04-01] MEDS ORDERED: Furosemide 40 MG/4 ML VIAL ONE ×2 (05:16→07:51)
[2021-04-01 05:22] LABS: Hemoglobin 12.8 g/dL (13.5-17.5); Mean Corpuscular HGB CONC 31.8 g/dL (32.0-36.0); Mean Corpuscular Hemoglobin 28.1 pg (27.0-33.0); Mean Corpuscular Volume 88.4 fl (81.2-95.1); Mean Platelet Volume 11.6 fl (7.4-10.4); Platelet Count 212 10x3/uL (150-450); RBC Distribution Width 16.6 % (11.5-14.5); Red Blood Cell (RBC) Count 4.55 10x6/uL (4.32-5.72); White Blood Cell (WBC) Count 6.6 10x3/uL (3.5-10.5)
[2021-04-01 05:30] LABS: Anion Gap 13 mmol/L (10-20); BUN (Urea Nitrogen) 33 mg/dL (8.4-25.7); Calc. Creatinine Clearance 0 mL/min (70-130); Calcium 8.6 mg/dL (7.8-10.44); Carbon Dioxide 29 mmol/L (23-31); Chloride 100 mmol/L (98-107); Glucose 263 mg/dL (83-110); Sodium 138 mmol/L (136-145)
[2021-04-01] MEDS: Furosemide 40 MG/4 ML VIAL SLOW IVP SCH ×2 (05:37→14:00)
[2021-04-01 07:13] LABS: MDiff Complete? YES
[2021-04-01 07:17] LABS: Lymphocytes 10 % (21-51); Monocytes 16 % (0-10); Neutrophil 74 % (42-75)
[2021-04-01 07:18] LABS: Platelet Morphology Comment Appears Adequate; RBC Morphology Normal
[2021-04-01] MEDS ORDERED: Dexamethasone 10 MG/ML VIAL ONE (07:51)
[2021-04-01] MEDS ORDERED: Enoxaparin Sodium 40 MG/0.4 ML SYRINGE ONE (07:51)
[2021-04-01] MEDS ORDERED: Famotidine/PF 20 mg/2ml Vial ONE (07:52)
[2021-04-01] MEDS: Dexamethasone 20 MG/5 ML VIAL SLOW IVP SCH (09:00)
[2021-04-01] MEDS: Ascorbic Acid 500 mg Chewable Tablet PO SCH (10:18)
[2021-04-01] MEDS: Cholecalciferol (Vitamin D3) 400 UNITS TAB PO SCH (10:19)
[2021-04-01] MEDS: Aspirin Chewable 81 MG TAB PO SCH (10:19)
[2021-04-01] MEDS: Famotidine/PF 20 mg/2ml Vial SLOW IVP SCH (10:20)
[2021-04-01] MEDS: guaiFENesin ER 600 MG TAB PO SCH ×2 (10:20→21:38)
[2021-04-01] MEDS: Zinc Sulfate 220 MG CAP PO SCH (10:20)
[2021-04-01] MEDS: Enoxaparin Sodium 40 MG/0.4 ML SYRINGE SC SCH (10:20)
[2021-04-01] MEDS ORDERED: Ondansetron PF 4 MG/2 ML Vial ONE ×2 (10:48→18:06)
[2021-04-01] MEDS ORDERED: HYDROcodone/Acetaminophen 7.5/325 mg Tablet ONE (13:35)
[2021-04-01] MEDS ORDERED: Amlodipine 5 MG TAB ONE (14:56)
[2021-04-01] MEDS ORDERED: Carvedilol 25 MG TAB ONE (14:57)
[2021-04-01] MEDS: Carvedilol 12.5 MG TAB PO SCH (17:00)
[2021-04-01] MEDS ORDERED: hydrALAZINE 20 MG/ML VIAL ONE (18:10)
[2021-04-01] MEDS ORDERED: Nitroglycerin 0.4 MG TAB (25 Tab Bottle) SL PRN (20:05)
[2021-04-01] MEDS ORDERED: hydrALAZINE 20 MG/ML VIAL SLOW IVP PRN (20:07)
[2021-04-01] MEDS ORDERED: Nitroglycerin 2% Ointment 1 INCH/1 GM Packet ONE (20:11)
[2021-04-01] MEDS ORDERED: Acetaminophen 325 MG TAB ONE (20:12)
[2021-04-01] MEDS: HumaLOG 300 UNITS/3 ML VIAL SC PRN (20:24)
[2021-04-01] MEDS ORDERED: Nitroglycerin 2% Ointment 1 INCH/1 GM Packet TOP SCH (21:00)
[2021-04-01] MEDS ORDERED: hydrALAZINE 25 MG TAB ONE (21:08)
[2021-04-01] MEDS: Brimonidine Tartrate 0.2% Ophth Soln 5 ml Bottle EA EYE SCH (21:37)
[2021-04-01] MEDS: hydrALAZINE 25 MG TAB PO SCH (21:38)
[2021-04-01] MEDS: Lantus 1000 UNITS/10 ML VIAL SC SCH (21:39)
[2021-04-01 21:45] VITALS: BP 139/89
[2021-04-02] MEDS ORDERED: HYDROcodone/Acetaminophen 5/325 mg Tablet ONE (03:05)
[2021-04-02 03:31] LABS: #Monocytes 0.9 10x3/uL (0.0-1.1); #Neutrophils 4.5 10x3/uL (1.5-8.4); %Basophils 0.3 % (0.0-2.0); %Eosinophils 0.2 % (0.0-6.0); %Lymphocytes 12.1 % (18.0-47.0); %Monocytes 13.9 % (0.0-10.0); %Neutrophils 72.7 % (40.0-75.0); Hemoglobin 12.7 g/dL (13.5-17.5); Mean Corpuscular HGB CONC 31.4 g/dL (32.0-36.0); Mean Corpuscular Hemoglobin 27.8 pg (27.0-33.0); Mean Corpuscular Volume 88.4 fl (81.2-95.1); Mean Platelet Volume 10.4 fl (7.4-10.4); Platelet Count 175 10x3/uL (150-450); RBC Distribution Width 16.6 % (11.5-14.5); Red Blood Cell (RBC) Count 4.57 10x6/uL (4.32-5.72); White Blood Cell (WBC) Count 6.1 10x3/uL (3.5-10.5)
[2021-04-02 03:48] LABS: Anion Gap 14 mmol/L (10-20); BUN (Urea Nitrogen) 35 mg/dL (8.4-25.7); Calc. Creatinine Clearance 0 mL/min (70-130); Calcium 8.4 mg/dL (7.8-10.44); Carbon Dioxide 30 mmol/L (23-31); Chloride 99 mmol/L (98-107); Glucose 170 mg/dL (83-110); Potassium 3.8 mmol/L (3.5-5.1); Sodium 139 mmol/L (136-145)
[2021-04-02] MEDS ORDERED: Famotidine/PF 20 mg/2ml Vial ONE ×2 (08:31→09:27)
[2021-04-02] MEDS ORDERED: hydrALAZINE 25 MG TAB ONE (08:31)
[2021-04-02] MEDS ORDERED: Amlodipine 5 MG TAB ONE (08:31)
[2021-04-02] MEDS ORDERED: Carvedilol 12.5 MG TAB ONE (08:33)
[2021-04-02] MEDS ORDERED: Ondansetron PF 4 MG/2 ML Vial ONE ×2 (08:40→13:25)
[2021-04-02] MEDS: Ondansetron PF 4 MG/2 ML Vial IVP PRN (08:46)
[2021-04-02] MEDS: Carvedilol 12.5 MG TAB PO SCH (08:46)
[2021-04-02] MEDS: hydrALAZINE 25 MG TAB PO SCH (08:47)
[2021-04-02] MEDS ORDERED: Furosemide 20 MG TAB PO SCH (09:00)
[2021-04-02] MEDS ORDERED: Montelukast Sodium 10 mg Tablet PO SCH (09:00)
[2021-04-02] MEDS ORDERED: Allopurinol 100 MG TAB PO SCH (09:00)
[2021-04-02] MEDS ORDERED: Amitriptyline HCl 10 MG TAB PO SCH (09:00)
[2021-04-02] MEDS ORDERED: Famotidine/PF 20 mg/2ml Vial SLOW IVP SCH (09:00)
[2021-04-02] MEDS ORDERED: Amlodipine 10 MG TAB PO SCH (09:00)
[2021-04-02] MEDS ORDERED: Aspirin Chewable 81 MG TAB ONE (09:26)
[2021-04-02] MEDS ORDERED: Furosemide 40 MG/4 ML VIAL ONE (09:27)
[2021-04-02] MEDS ORDERED: Dexamethasone 10 MG/ML VIAL ONE (09:27)
[2021-04-02] MEDS ORDERED: Enoxaparin Sodium 40 MG/0.4 ML SYRINGE ONE (09:27)
[2021-04-02] MEDS ORDERED: Zinc Sulfate 220 MG CAP ONE (09:30)
[2021-04-02] MEDS ORDERED: Ascorbic Acid 500 mg Chewable Tablet ONE (09:30)
[2021-04-02] MEDS: Brimonidine Tartrate 0.2% Ophth Soln 5 ml Bottle EA EYE SCH (10:45)
[2021-04-02] MEDS: Aspirin Chewable 81 MG TAB PO SCH (10:45)
[2021-04-02] MEDS: Ascorbic Acid 500 mg Chewable Tablet PO SCH (10:45)
[2021-04-02] MEDS: Cholecalciferol (Vitamin D3) 400 UNITS TAB PO SCH (10:46)
[2021-04-02] MEDS: Dexamethasone 20 MG/5 ML VIAL SLOW IVP SCH (10:46)
[2021-04-02] MEDS: Enoxaparin Sodium 40 MG/0.4 ML SYRINGE SC SCH (10:46)
[2021-04-02] MEDS: guaiFENesin ER 600 MG TAB PO SCH (10:47)
[2021-04-02] MEDS: Zinc Sulfate 220 MG CAP PO SCH (10:47)
[2021-04-02] MEDS: HumaLOG 300 UNITS/3 ML VIAL SC PRN (12:03)
== END 2021-04-02 16:00 | disposition home health service (06) | DRG 177 ==
LOC: CSHERS 13:09 → CSHERHOLD 16:58
PROVIDERS: ADMIT Family Medicine; ATTEND Emergency Medicine
PROC: 5A09357 Assistance with Respiratory Ventilation, Less than 24 Consecutive Hours, Continuous Positive Airway Pressure (ICD-10-PCS; principal; 2021-03-30)
PROC: 8E0ZXY6 Isolation (ICD-10-PCS; 2021-03-30)
DX: U07.1 COVID-19 (principal); J96.21 Acute and chronic respiratory failure with hypoxia; I50.33 Acute on chronic diastolic (congestive) heart failure; J44.1 Chronic obstructive pulmonary disease with (acute) exacerbation; I13.0 Hypertensive heart and chronic kidney disease with heart failure and stage 1 through stage 4 chronic kidney disease, or unspecified chronic kidney disease; M10.9 Gout, unspecified; E11.22 Type 2 diabetes mellitus with diabetic chronic kidney disease; N18.32 Chronic kidney disease, stage 3b; G47.33 Obstructive sleep apnea (adult) (pediatric); I25.10 Atherosclerotic heart disease of native coronary artery without angina pectoris; Z95.5 Presence of coronary angioplasty implant and graft; Z91.041 Radiographic dye allergy status; Z88.8 Allergy status to other drugs, medicaments and biological substances; Z79.82 Long term (current) use of aspirin; Z79.899 Other long term (current) drug therapy; Z79.4 Long term (current) use of insulin; Z87.891 Personal history of nicotine dependence; Z90.49 Acquired absence of other specified parts of digestive tract; Z98.890 Other specified postprocedural states; Z91.14 Patient's other noncompliance with medication regimen
CPT/HCPCS: 36415; 36416; 71045; 80048; 80053; 83880; 84484; 85025; 86140; 93005; 93010; 94660; 94760; 96374; 96375; J0360; J1100; J1650; J1815; J1940; J2405; S0028; U0002

== ENCOUNTER 2021-07-12 10:11 | Emergency (ER) | payer MEDICARE ==
[2021-07-12 11:09] LABS: #Eosinphils 0.3 10x3/uL (0.0-0.5); #Monocytes 0.8 10x3/uL (0.0-1.1); #Neutrophils 7.8 10x3/uL (1.5-8.4); %Basophils 0.4 % (0.0-2.0); %Eosinophils 2.8 % (0.0-6.0); %Lymphocytes 9.5 % (18.0-47.0); %Monocytes 8.2 % (0.0-10.0); %Neutrophils 78.6 % (40.0-75.0); Hemoglobin 12.2 g/dL (13.5-17.5); Mean Corpuscular Volume 87.4 fl (81.2-95.1); Mean Platelet Volume 11.4 fl (7.4-10.4); Platelet Count 218 10x3/uL (150-450); RBC Distribution Width 14.4 % (11.5-14.5); Red Blood Cell (RBC) Count 4.36 10x6/uL (4.32-5.72); White Blood Cell (WBC) Count 9.9 10x3/uL (3.5-10.5)
[2021-07-12] MEDS ORDERED: Furosemide 40 MG/4 ML VIAL ONE (11:18)
[2021-07-12 11:23] LABS: Anion Gap 14 mmol/L (10-20); BUN (Urea Nitrogen) 30 mg/dL (8.4-25.7); Calc. Creatinine Clearance 0 mL/min (70-130); Calcium 9.9 mg/dL (7.8-10.44); Carbon Dioxide 30 mmol/L (23-31); Chloride 100 mmol/L (98-107); Glucose 142 mg/dL (83-110); Potassium 4.6 mmol/L (3.5-5.1); Sodium 139 mmol/L (136-145)
[2021-07-12 11:34] LABS: INR-International Normal Ratio 0.9; PTT 26.1 sec (22.0-33.0); Prothrombin Time 10.3 sec (9.5-12.1)
[2021-07-12 11:38] LABS: ALT (SGPT) 12 U/L (8-55); AST (SGOT) 20 U/L (5-34); Alkaline Phosphatase 82 U/L (40-110); Anion Gap 14 mmol/L (10-20); BUN (Urea Nitrogen) 30 mg/dL (8.4-25.7); Bilirubin, Total 0.5 mg/dL (0.2-1.2); Calc. Creatinine Clearance 0 mL/min (70-130); Calcium 9.8 mg/dL (7.8-10.44); Carbon Dioxide 30 mmol/L (23-31); Chloride 100 mmol/L (98-107); Globulin 3.6 g/dL (2.4-3.5); Glucose 144 mg/dL (83-110); Potassium 4.6 mmol/L (3.5-5.1); Protein, Total 7.6 g/dL (5.8-8.1); Sodium 139 mmol/L (136-145)
== END 2021-07-12 12:22 | disposition home or self-care (01) ==
LOC: CSHERS 10:11
DX: R04.0 Epistaxis (principal); I11.0 Hypertensive heart disease with heart failure; I50.9 Heart failure, unspecified; J44.9 Chronic obstructive pulmonary disease, unspecified; I25.10 Atherosclerotic heart disease of native coronary artery without angina pectoris; E11.9 Type 2 diabetes mellitus without complications; I25.2 Old myocardial infarction; Z87.891 Personal history of nicotine dependence
CPT/HCPCS: 71045; 80048; 83880; 85025; 85610; 85730; 93005; 96374; J1940

== ENCOUNTER 2021-07-14 19:59 | Emergency (ER) | payer MEDICARE | END 2021-07-14 22:20 | disposition home or self-care (01) | LOC: CSHERS 19:59 | DX: S50.02XA Contusion of left elbow, initial encounter (principal); M19.022 Primary osteoarthritis, left elbow; I25.2 Old myocardial infarction; I11.0 Hypertensive heart disease with heart failure; I50.9 Heart failure, unspecified; I25.10 Atherosclerotic heart disease of native coronary artery without angina pectoris; J44.9 Chronic obstructive pulmonary disease, unspecified; E11.9 Type 2 diabetes mellitus without complications; Z87.891 Personal history of nicotine dependence; W19.XXXA Unspecified fall, initial encounter ==

== ENCOUNTER 2021-08-08 09:53 | Emergency (ER) | payer MEDICARE ==
[2021-08-08 10:26] LABS: #Eosinphils 0.3 10x3/uL (0.0-0.5); #Monocytes 0.7 10x3/uL (0.0-1.1); #Neutrophils 6.9 10x3/uL (1.5-8.4); %Basophils 0.3 % (0.0-2.0); %Lymphocytes 10.7 % (18.0-47.0); %Neutrophils 77.2 % (40.0-75.0); Hemoglobin 12.6 g/dL (13.5-17.5); Mean Corpuscular HGB CONC 33.1 g/dL (32.0-36.0); Mean Corpuscular Volume 84.7 fl (81.2-95.1); Mean Platelet Volume 10.7 fl (7.4-10.4); Platelet Count 212 10x3/uL (150-450); RBC Distribution Width 14.8 % (11.5-14.5); White Blood Cell (WBC) Count 8.9 10x3/uL (3.5-10.5)
[2021-08-08] MEDS ORDERED: Morphine 2 MG/ML VIAL ONE ×2 (10:32→12:39)
[2021-08-08 10:36] LABS: Bilirubin Neg (Negative); Blood, Urine Negative (Negative); Clarity Clear (Clear); Glucose, Urine (Dipstick) Normal (Negative); Ketone, Urine Negative (Negative); Leukocyte Negative (Negative); Nitrite Negative (Negative); Protein, Urine (Dipstick) 15 mg/dl (Neg-Trace); Urobilinogen Normal mg/dL (Less than 2)
[2021-08-08 10:40] LABS: ALT (SGPT) 14 U/L (8-55); AST (SGOT) 19 U/L (5-34); Albumin 4.2 g/dL (3.4-4.8); Alkaline Phosphatase 85 U/L (40-110); Anion Gap 15 mmol/L (10-20); BUN (Urea Nitrogen) 30 mg/dL (8.4-25.7); Bilirubin, Total 0.5 mg/dL (0.2-1.2); Calc. Creatinine Clearance 0 mL/min (70-130); Calcium 9.6 mg/dL (7.8-10.44); Carbon Dioxide 28 mmol/L (23-31); Chloride 101 mmol/L (98-107); Globulin 3.7 g/dL (2.4-3.5); Glucose 141 mg/dL (83-110); Lipase 37 U/L (8-78); Potassium 3.7 mmol/L (3.5-5.1); Protein, Total 7.9 g/dL (5.8-8.1); Sodium 140 mmol/L (136-145)
[2021-08-08] MEDS ORDERED: Tetracaine 0.5% PF 4 ML BOT ONE (12:09)
== END 2021-08-08 13:12 | disposition home or self-care (01) ==
LOC: CSHERS 09:53
DX: R10.32 Left lower quadrant pain (principal); H40.89 Other specified glaucoma; J44.9 Chronic obstructive pulmonary disease, unspecified; I50.9 Heart failure, unspecified; I25.10 Atherosclerotic heart disease of native coronary artery without angina pectoris; I11.0 Hypertensive heart disease with heart failure; I25.2 Old myocardial infarction; E11.9 Type 2 diabetes mellitus without complications; Z87.891 Personal history of nicotine dependence
CPT/HCPCS: 74176; 80053; 81003; 83605; 83690; 85025; 93005; 96374; 96376; 99284; J2270; 82274

== ENCOUNTER 2021-08-11 03:48 | Emergency (ER) | payer MEDICARE ==
[2021-08-11 04:31] LABS: #Basophils 0.1 10x3/uL (0.0-0.2); #Eosinphils 0.3 10x3/uL (0.0-0.5); #Monocytes 0.7 10x3/uL (0.0-1.1); %Basophils 0.6 % (0.0-2.0); %Eosinophils 3.8 % (0.0-6.0); %Lymphocytes 11.2 % (18.0-47.0); %Monocytes 8.7 % (0.0-10.0); %Neutrophils 74.8 % (40.0-75.0); Hemoglobin 12.2 g/dL (13.5-17.5); Mean Corpuscular HGB CONC 32.7 g/dL (32.0-36.0); Mean Corpuscular Hemoglobin 28.4 pg (27.0-33.0); Mean Corpuscular Volume 86.9 fl (81.2-95.1); Platelet Count 183 10x3/uL (150-450); RBC Distribution Width 14.8 % (11.5-14.5); Red Blood Cell (RBC) Count 4.29 10x6/uL (4.32-5.72)
[2021-08-11 04:48] LABS: AST (SGOT) 20 U/L (5-34); Anion Gap 17 mmol/L (10-20); Bilirubin, Total 0.3 mg/dL (0.2-1.2); Calcium 8.7 mg/dL (7.8-10.44); Carbon Dioxide 25 mmol/L (23-31); Chloride 103 mmol/L (98-107); Potassium 3.8 mmol/L (3.5-5.1); Sodium 141 mmol/L (136-145)
[2021-08-11 05:00] LABS: ALT (SGPT) 12 U/L (8-55); Alkaline Phosphatase 87 U/L (40-110); BUN (Urea Nitrogen) 28 mg/dL (8.4-25.7); Calc. Creatinine Clearance 0 mL/min (70-130); Globulin 2.9 g/dL (2.4-3.5); Glucose 143 mg/dL (83-110); Lipase 37 U/L (8-78); Protein, Total 6.9 g/dL (5.8-8.1)
== END 2021-08-11 05:27 | disposition home or self-care (01) ==
LOC: CSHERS 03:48
DX: K59.00 Constipation, unspecified (principal); I11.0 Hypertensive heart disease with heart failure; I50.9 Heart failure, unspecified; E11.9 Type 2 diabetes mellitus without complications; I25.10 Atherosclerotic heart disease of native coronary artery without angina pectoris; J44.9 Chronic obstructive pulmonary disease, unspecified; I25.2 Old myocardial infarction; H40.9 Unspecified glaucoma; Z87.891 Personal history of nicotine dependence; Z79.82 Long term (current) use of aspirin; Z79.4 Long term (current) use of insulin; Z79.899 Other long term (current) drug therapy
CPT/HCPCS: 36415; 74176; 80053; 83690; 85025; 94760

== ENCOUNTER 2021-10-01 14:50 | Observation (INO) | payer MEDICARE ==
[2021-10-01] MEDS ORDERED: Iopamidol 300 61% 100 ML VIAL FS ONE (15:15)
[2021-10-01 15:46] LABS: #Eosinphils 0.3 10x3/uL (0.0-0.5); #Monocytes 0.7 10x3/uL (0.0-1.1); %Basophils 0.3 % (0.0-2.0); %Eosinophils 2.9 % (0.0-6.0); %Lymphocytes 8.5 % (18.0-47.0); %Monocytes 6.8 % (0.0-10.0); %Neutrophils 80.8 % (40.0-75.0); Hemoglobin 12.1 g/dL (13.5-17.5); Mean Corpuscular HGB CONC 33.3 g/dL (32.0-36.0); Mean Corpuscular Hemoglobin 28.3 pg (27.0-33.0); Mean Corpuscular Volume 84.8 fl (81.2-95.1); Mean Platelet Volume 11.8 fl (7.4-10.4); Platelet Count 205 10x3/uL (150-450); RBC Distribution Width 15.4 % (11.5-14.5); Red Blood Cell (RBC) Count 4.28 10x6/uL (4.32-5.72); White Blood Cell (WBC) Count 9.9 10x3/uL (3.5-10.5)
[2021-10-01 15:56] LABS: ALT (SGPT) 19 U/L (8-55); AST (SGOT) 17 U/L (5-34); Albumin 3.8 g/dL (3.4-4.8); Alkaline Phosphatase 97 U/L (40-110); Anion Gap 13 mmol/L (10-20); BUN (Urea Nitrogen) 28 mg/dL (8.4-25.7); Bilirubin, Total 0.3 mg/dL (0.2-1.2); Calc. Creatinine Clearance 0 mL/min (70-130); Calcium 8.9 mg/dL (7.8-10.44); Carbon Dioxide 27 mmol/L (23-31); Chloride 101 mmol/L (98-107); Estimated GFR 37; Glucose 329 mg/dL (83-110); Lipase 37 U/L (8-78); Protein, Total 6.8 g/dL (5.8-8.1); Sodium 137 mmol/L (136-145)
[2021-10-01] MEDS ORDERED: Ipratropium Bromide 2.5 ml Neb ONE (15:56)
[2021-10-01] MEDS ORDERED: Albuterol Sulfate 2.5 mg/3 ml Neb ONE ×2 (15:57→20:39)
[2021-10-01] MEDS ORDERED: diphenhydrAMINE 50 MG/ML VIAL ONE (16:57)
[2021-10-01] MEDS ORDERED: methylPREDNISolone Sod Succ 40 MG VIAL ONE (16:57)
[2021-10-01] MEDS ORDERED: Famotidine/PF 20 mg/2ml Vial ONE (16:57)
[2021-10-01 17:24] LABS: Bilirubin Neg (Negative); Blood, Urine Negative (Negative); Clarity Clear (Clear); Glucose, Urine (Dipstick) >=1000 mg/dL (Negative); Ketone, Urine Negative (Negative); Leukocyte Negative (Negative); Nitrite Negative (Negative); Protein, Urine (Dipstick) 100 mg/dl (Neg-Trace); Urobilinogen Normal mg/dL (Less than 2); pH, Urine 6.5 (5.0-9.0)
[2021-10-01 17:49] LABS: Bacteria/HPF Rare-Few HPF (None Seen); Mucous/LPF Rare LPF (<2+); RBC/HPF None Seen HPF (0-3); Squamous Epithelial 0-3 HPF (0-3); WBC/HPF None Seen HPF (0-3)
[2021-10-01 17:50] LABS: Calcium Oxalate Crystals 1+ HPF (None Seen)
[2021-10-01] MEDS ORDERED: HYDROcodone/Acetaminophen 5/325 mg Tablet ONE (19:40)
[2021-10-01 23:31] VITALS: BMI 30.1
[2021-10-02 01:29] LABS: SARS-CoV-2 NAA Rapid Test Not Detected (NotDetected)
[2021-10-02] MEDS ORDERED: Senokot S 8.6-50 MG TAB PO PRN (01:52)
[2021-10-02] MEDS ORDERED: Acetaminophen 325 MG TAB PO PRN (01:52)
[2021-10-02] MEDS ORDERED: Simethicone Chewable 80 MG TAB PO PRN (01:52)
[2021-10-02] MEDS ORDERED: Albuterol Sulfate 2.5 mg/3 ml Neb NEB PRN (01:52)
[2021-10-02] MEDS ORDERED: ALBUTEROL SULFATE 90 MCG IH PRN (01:52)
[2021-10-02] MEDS ORDERED: Polyethylene Glycol 3350 17 GM Packet PO PRN (01:52)
[2021-10-02] MEDS ORDERED: Dextrose 5% in Water 1,000 ML IV PRN (01:55)
[2021-10-02] MEDS ORDERED: Dextrose 50% Abboject 50 ML SYRINGE SLOW IVP PRN (01:55)
[2021-10-02] MEDS ORDERED: GoLYTELY 4,000 ml Bottle PO SCH (02:00)
[2021-10-02] MEDS: HumaLOG 300 UNITS/3 ML VIAL SC PRN ×5 (03:18→21:23)
[2021-10-02 04:09] LABS: #Monocytes 0.1 10x3/uL (0.0-1.1); #Neutrophils 9.3 10x3/uL (1.5-8.4); %Basophils 0.1 % (0.0-2.0); %Lymphocytes 4.4 % (18.0-47.0); %Monocytes 0.8 % (0.0-10.0); %Neutrophils 94.2 % (40.0-75.0); Hemoglobin 12.5 g/dL (13.5-17.5); Mean Corpuscular HGB CONC 33.1 g/dL (32.0-36.0); Mean Corpuscular Volume 84.8 fl (81.2-95.1); Mean Platelet Volume 11.5 fl (7.4-10.4); Platelet Count 205 10x3/uL (150-450); RBC Distribution Width 15.3 % (11.5-14.5); Red Blood Cell (RBC) Count 4.46 10x6/uL (4.32-5.72); White Blood Cell (WBC) Count 9.8 10x3/uL (3.5-10.5)
[2021-10-02 04:21] LABS: Anion Gap 14 mmol/L (10-20); BUN (Urea Nitrogen) 25 mg/dL (8.4-25.7); Calc. Creatinine Clearance 50 mL/min (70-130); Calcium 9.2 mg/dL (7.8-10.44); Carbon Dioxide 24 mmol/L (23-31); Chloride 103 mmol/L (98-107); Estimated GFR 41; Glucose 417 mg/dL (83-110); Magnesium 1.7 mg/dL (1.6-2.6); Potassium 4.4 mmol/L (3.5-5.1); Sodium 137 mmol/L (136-145)
[2021-10-02] MEDS: Arformoterol 15 MCG/2 ML NEB NEB SCH ×2 (08:11→20:45)
[2021-10-02] MEDS: Ipratropium Bromide 0.06% Nasal Inhaler 15ml EA NARE SCH (08:13)
[2021-10-02] MEDS: Brimonidine Tartrate 0.2% Ophth Soln 5 ml Bottle EA EYE SCH ×2 (08:13→21:18)
[2021-10-02] MEDS: Budesonide 0.5 MG/2 ML NEB NEB SCH ×2 (08:13→20:45)
[2021-10-02] MEDS: Amitriptyline HCl 10 MG TAB PO SCH (08:16)
[2021-10-02] MEDS: Bumetanide 1 MG TAB PO SCH (08:16)
[2021-10-02] MEDS: Allopurinol 100 MG TAB PO SCH (08:17)
[2021-10-02] MEDS: Fish Oil 1,000 MG CAP PO SCH (08:17)
[2021-10-02] MEDS: hydrALAZINE 25 MG TAB PO SCH ×3 (08:17→21:17)
[2021-10-02] MEDS: Calcium Carbonate 500 MG TAB PO SCH (08:17)
[2021-10-02] MEDS: Aspirin Chewable 81 MG TAB PO SCH (08:17)
[2021-10-02] MEDS: Ferrous Sulfate 325 MG TAB PO SCH (08:18)
[2021-10-02] MEDS: Amlodipine 10 MG TAB PO SCH (08:18)
[2021-10-02] MEDS: Carvedilol 12.5 MG TAB PO SCH ×2 (08:18→17:24)
[2021-10-02] MEDS: cloNIDine 0.1 MG TAB PO SCH ×3 (08:19→21:16)
[2021-10-02] MEDS: Lantus 1000 UNITS/10 ML VIAL SC SCH ×2 (08:19→21:27)
[2021-10-02] MEDS: Enoxaparin Sodium 40 MG/0.4 ML SYRINGE SC SCH (08:19)
[2021-10-02] MEDS ORDERED: Latanoprost 0.005% Ophth Soln 2.5 ml Bottle EA EYE SCH (21:00)
[2021-10-02] MEDS ORDERED: Atorvastatin Calcium 10 MG TAB PO SCH (21:00)
[2021-10-02] MEDS ORDERED: Montelukast Sodium 10 mg Tablet PO SCH (21:00)
[2021-10-02] MEDS ORDERED: Acetaminophen 500 MG TAB PO SCH (23:00)
[2021-10-03] MEDS ORDERED: Acetaminophen 500 MG TAB PO SCH (03:45)
[2021-10-03 04:13] LABS: #Eosinphils 0.2 10x3/uL (0.0-0.5); #Monocytes 0.7 10x3/uL (0.0-1.1); #Neutrophils 6.5 10x3/uL (1.5-8.4); %Basophils 0.4 % (0.0-2.0); %Eosinophils 2.6 % (0.0-6.0); %Lymphocytes 10.1 % (18.0-47.0); %Monocytes 8.7 % (0.0-10.0); %Neutrophils 77.4 % (40.0-75.0); Mean Corpuscular HGB CONC 32.4 g/dL (32.0-36.0); Mean Corpuscular Hemoglobin 27.8 pg (27.0-33.0); Mean Corpuscular Volume 85.8 fl (81.2-95.1); Mean Platelet Volume 11.8 fl (7.4-10.4); Platelet Count 187 10x3/uL (150-450); RBC Distribution Width 15.3 % (11.5-14.5); Red Blood Cell (RBC) Count 3.95 10x6/uL (4.32-5.72); White Blood Cell (WBC) Count 8.4 10x3/uL (3.5-10.5)
[2021-10-03 04:28] LABS: Anion Gap 11 mmol/L (10-20); BUN (Urea Nitrogen) 23 mg/dL (8.4-25.7); Calc. Creatinine Clearance 58 mL/min (70-130); Calcium 8.7 mg/dL (7.8-10.44); Carbon Dioxide 28 mmol/L (23-31); Chloride 103 mmol/L (98-107); Estimated GFR 48; Glucose 188 mg/dL (83-110); Potassium 3.8 mmol/L (3.5-5.1); Sodium 138 mmol/L (136-145)
[2021-10-03 04:30] LABS: Troponin I 0.017 ng/mL (< 0.028)
[2021-10-03] MEDS: HumaLOG 300 UNITS/3 ML VIAL SC PRN (05:07)
[2021-10-03] MEDS: Arformoterol 15 MCG/2 ML NEB NEB SCH (08:14)
[2021-10-03] MEDS: Budesonide 0.5 MG/2 ML NEB NEB SCH (08:15)
[2021-10-03] MEDS: hydrALAZINE 25 MG TAB PO SCH (08:56)
[2021-10-03] MEDS: Enoxaparin Sodium 40 MG/0.4 ML SYRINGE SC SCH (08:58)
[2021-10-03] MEDS: Bumetanide 1 MG TAB PO SCH (08:58)
[2021-10-03] MEDS: Fish Oil 1,000 MG CAP PO SCH (08:58)
[2021-10-03] MEDS: Allopurinol 100 MG TAB PO SCH (08:59)
[2021-10-03] MEDS: Calcium Carbonate 500 MG TAB PO SCH (08:59)
[2021-10-03] MEDS: Amlodipine 10 MG TAB PO SCH (08:59)
[2021-10-03] MEDS: Aspirin Chewable 81 MG TAB PO SCH (09:00)
[2021-10-03] MEDS: cloNIDine 0.1 MG TAB PO SCH (09:00)
[2021-10-03] MEDS: Ferrous Sulfate 325 MG TAB PO SCH (09:00)
[2021-10-03] MEDS: Amitriptyline HCl 10 MG TAB PO SCH (09:00)
[2021-10-03] MEDS: Carvedilol 12.5 MG TAB PO SCH (09:00)
[2021-10-03] MEDS: Ipratropium Bromide 0.06% Nasal Inhaler 15ml EA NARE SCH (09:01)
[2021-10-03] MEDS: Brimonidine Tartrate 0.2% Ophth Soln 5 ml Bottle EA EYE SCH (09:04)
[2021-10-03] MEDS: Lantus 1000 UNITS/10 ML VIAL SC SCH (09:05)
[2021-10-03 12:58] VITALS: BP 124/65; TEMP 96.9
[2021-10-08] MEDS ORDERED: cloNIDine 0.1mg/24 Hour PATCH TD SCH (09:00)
== END 2021-10-03 14:56 | disposition home or self-care (01) ==
LOC: CSHERS 14:50 → CSHTELE 23:28 → UNDOADMOB 23:28 → CSHTELE 10-02 01:48
PROVIDERS: ADMIT Internal Medicine; ATTEND Internal Medicine
DX: J44.1 Chronic obstructive pulmonary disease with (acute) exacerbation (principal); J96.21 Acute and chronic respiratory failure with hypoxia; I13.0 Hypertensive heart and chronic kidney disease with heart failure and stage 1 through stage 4 chronic kidney disease, or unspecified chronic kidney disease; E11.22 Type 2 diabetes mellitus with diabetic chronic kidney disease; N18.32 Chronic kidney disease, stage 3b; I50.32 Chronic diastolic (congestive) heart failure; E11.65 Type 2 diabetes mellitus with hyperglycemia; G47.33 Obstructive sleep apnea (adult) (pediatric); I25.10 Atherosclerotic heart disease of native coronary artery without angina pectoris; M10.9 Gout, unspecified; R19.00 Intra-abdominal and pelvic swelling, mass and lump, unspecified site; K59.00 Constipation, unspecified; N17.9 Acute kidney failure, unspecified; Z79.899 Other long term (current) drug therapy; Z88.6 Allergy status to analgesic agent; Z88.8 Allergy status to other drugs, medicaments and biological substances; Z91.041 Radiographic dye allergy status; Z99.81 Dependence on supplemental oxygen
CPT/HCPCS: 71045; 74177; 80048 ×2; 80053; 82962 ×3; 83605; 83690; 83735; 83880; 84484 ×2; 85025 ×3; 87081; 93005; 94640 ×4; 94644; 94760 ×3; 96372; 96376; 97116; 97530 ×2; 97535; G0378 ×2; U0002; 36416; 81003; 81015; 96374; 96375; J1200; J1650; J1815; J2920; J7611; J7626; Q9967; S0028